=== PATIENT | female | born 1995 | race Caucasian/White ===

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

== ENCOUNTER 2017-02-18 15:07 | Emergency (ER) | payer MEDICAID ==
[~2017-02-18] VITALS: Ht 154.9 cm; Wt 56.0 kg
[~2017-02-18 15:07] MED LIST: DOXY100C PO
[2017-02-18 15:10] VITALS: BP 147/69; PULSE 60; RESP 14; TEMP 97.8; O2SAT 99
--- NOTE | 2017-02-18 15:23 | PD ---
Physical Exam Date Seen by Provider: Feb 18, 2017 Time Seen by Provider: 15:20 Narrative 21 year old female presents to the emergency department for evaluation of abdominal cramping for 6 days, recent positive tests. She reports vaginal bleeding that started approximately 45 minutes ago. Patient states her LMP was sometime in December. Patient awaiting bed placement. Data Data Last Documented VS Vital Signs Date Time Temp Pulse Resp B/P Pulse Ox O2 Delivery O2 Flow Rate FiO2 02/18/17 15:10 97.8 60 14 147/69 99 MDM Supervised Visit with KIT: Rosalia Nickerson Feb 18, 2017 15:22
--- NOTE | 2017-02-18 16:43 | PD ---
HPI Chief Complaint: Related Problem Time Seen by Provider: 16:34 Travel History International Travel<30 days: No Contact w/Intl Traveler<30days: No Traveled to known affect area: No History of Present Illness HPI 21-year-old female here with complaint of and vaginal bleeding. Patient does not know her LMP, believes it was sometimes in December but states that her menses are irregular at baseline. She's never before been . For the last 6 days she has had some cramping in the low abdomen/pelvis and today began to have some brownish to reddish vaginal bleeding. And not to use a panty liner. No clots or tissue. No abnormal discharge. Cramping is mild. Patient took 3 home test were positive prompting ER visit. PFSH Past Medical History Asthma: Yes Depression: Yes Diminished Hearing: No Reproductive: Yes (endometriosis ) Respiratory: Yes (asthma) Immunizations Current: No Tetanus Vaccination: Never Vaccinated Influenza Vaccination: No ?: LMP: 12/2016 : 1 Para: 0 Miscarriage: 0 : 0 Past Surgical History Appendectomy: Yes Social History Alcohol Use: No Tobacco Use: No Substance Use: No Allergies-Medications (Allergen,Severity, Reaction): Coded Allergies: Augmentin (Verified Allergy, Severe, Tachycardia, 02/18/17) Benadryl (Verified Allergy, Intermediate, Rash, 02/18/17) Reported Meds & Prescriptions Reported Meds & Active Scripts Active Doxycycline Hyclate 100 Mg Cap 100 Mg PO BID Review of Systems Except as stated in HPI: all other systems reviewed are Neg Physical Exam Narrative GENERAL: Well-appearing female in no acute distress SKIN: Focused skin assessment warm/dry. HEAD: Normocephalic. EYES: No scleral icterus. No injection or drainage. ENT: Mucous membranes pink and moist. NECK: Supple CARDIOVASCULAR: Regular rate and rhythm. RESPIRATORY: No accessory muscle use. GASTROINTESTINAL: Abdomen soft, non-tender, nondistended. MUSCULOSKELETAL: Normal gait NEUROLOGICAL: Awake and alert. Normal speech. PSYCHIATRIC: Appropriate mood and affect; insight and judgment normal. Data Data Last Documented VS Vital Signs Date Time Temp Pulse Resp B/P Pulse Ox O2 Delivery O2 Flow Rate FiO2 02/18/17 15:10 97.8 60 14 147/69 99 Orders Ed Urine Pregnancytest Poc (02/18/17 16:34) Ed Poc Ultrasound (02/18/17 ) Beta Hcg (Quant/Titer) (02/18/17 16:40) Complete Rh (02/18/17 16:40) Us Pelvis (Ques Preg/Ectopic) (02/18/17 ) MDM Medical Decision Making Medical Screen Exam Complete: Yes Emergency Medical Condition: Yes Medical Record Reviewed: Yes Differential Diagnosis 21-year-old female here with complaint of , cramping and vaginal bleeding. Differential includes , ectopic , threatened AB, missed AB, inevitable AB. Narrative Course Urine test positive. Bedside ultrasound performed but no identifiable intrauterine visualized. Beta Quant, Rh and formal transvaginal ultrasound were ordered and are pending at the time this dictation. Patient signed out to oncoming provider waiting results of same. Procedures Procedure Narrative Emergency Department Pelvic ultrasound was performed with patient consent. The curvilinear probe was used in the transverse and sagittal views within the suprapubic region revealing no evidence of intrauterine . Kelly Frank MD Feb 18, 2017 16:43
[2017-02-18 17:33] LABS: BETA HCG QUANT 7 MIU/ML (0-5)
--- NOTE | 2017-02-18 18:34 | RADRPT ---
EXAM DATE/TIME: 02/18/2017 17:41 [facility] COMPARISON: No previous studies available for comparison. INDICATIONS : Bleeding and pain with . LAB(S): Beta-hC MEDICAL HISTORY : . Asthma. Depression. Endometriosis. SURGICAL HISTORY : Appendectomy. ENCOUNTER: Initial ACUITY: 4-6 days PAIN SCORE: 6/10 LOCATION: Bilateral pelvis MEASUREMENTS: UTERUS: 7.7 x 4.2 x 2.6 cm ENDOMETRIAL STRIPE: 7 mm RIGHT OVARY: 2.7 x 2.3 x 2.4 cm LEFT OVARY: 2.7 x 2.1 x 2.1 cm FREE FLUID: No CROWN RUMP LENGTH: Non visualized. = WKS DAYS FHR: Non visualized. BPM FINDINGS: UTERUS: The myometrium has homogeneous echotexture. There is a small 0.4 x 0.3 x 0.2 cm cystic area seen in t he lower uterine segment/ in the endometrium. This is nonspecific. A small gestational sac cannot be excluded. A yolk sac is not seen. A pole is not seen. RIGHT OVARY: Ovary contains no mass or significant cystic lesion. Follicles are seen. Normal arterial flow is see n. LEFT OVARY: Ovary contains no mass or significant cystic lesion. Follicles are seen. Normal arterial flow is seen . MISCELLANEOUS: No free fluid. CONCLUSION: Small 0.4 cm cystic area seen in the lower uterine segment in the endometrium which is nonspecific. A gestational sac cannot be excluded. However, it also cannot be confirmed. Followup is recommended. Alexandre Romo MD on February 18, 2017 at 18:28 Board Certified Radiologist. This report was verified electronically.
--- NOTE | 2017-02-18 18:45 | PD ---
Physical Exam Narrative The patient was initially evaluated by the previous provider and sent out to me at the beginning of my shift at approximately 5:00 PM pending beta hCG, blood type, and pelvic ultrasound. See her note for further details. Briefly this is a 21-year-old female complaining of and vaginal bleeding. Unknown LMP. She had 3 positive home test at home. She was experiencing some mild pelvic cramping. On my assessment the patient is resting comfortably. Her abdominal exam is benign. Vital signs show heart rate 60, blood pressure 147/69, pulse ox 99% on room air, oral temp of 97.8F. Beta hCG is 7. Blood type is A+. Pelvic ultrasound: CONCLUSION: Small 0.4 cm cystic area seen in the lower uterine segment in the endometrium which is nonspecific. A gestational sac cannot be excluded. However, it also cannot be confirmed. Followup is recommended. Patient was made aware of all findings and was provided a copy of the ultrasound report. She is resting comfortably. There are no peritoneal signs on exam and her abdomen is nontender. She was instructed to return to the emergency department in 48-72 hours for repeat beta hCG. She is stable for outpatient follow-up. She can also follow-up with an ELECTRIC SHIPYARD OPERATOR doctor of her choice this week. She was informed on when to return to the emergency Department sooner. She verbalizes understanding and agreement with plan. Data Data Last Documented VS Vital Signs Date Time Temp Pulse Resp B/P Pulse Ox O2 Delivery O2 Flow Rate FiO2 02/18/17 15:10 97.8 60 14 147/69 99 Orders Ed Urine Pregnancytest Poc (02/18/17 16:34) Ed Poc Ultrasound (02/18/17 ) Beta Hcg (Quant/Titer) (02/18/17 16:40) Complete Rh (02/18/17 16:40) Us Pelvis (Ques Pr/Ect)W Trans (02/18/17 ) Labs Laboratory Tests Test 02/18/17 16:50 Human Chorionic Gonadotropin, 7 MIU/ML Quant Blood Type A POSITIVE Rho(D) Type POSITIVE MDM Supervised Visit with KIT: No Diagnosis Primary Impression: First trimester bleeding Referrals: Fashion Designer 1 week Additional Instruction: Follow-up with an ELECTRIC SHIPYARD OPERATOR doctor this week. Return to the emergency department in 48-72 hours for repeat beta hCG. Return to the emergency Department sooner for worsening symptoms or any other concerns as discussed. Disposition: 01 DISCHARGE HOME Condition: Miki Richardson MD Feb 18, 2017 18:44
[2017-02-18 19:24] VITALS: BP 121/63; TEMP 98.2
== END 2017-02-18 19:37 | disposition home or self-care (01) ==
LOC: NEPD 15:07
DX: O20.9 Hemorrhage in early pregnancy, unspecified (principal); J45.909 Unspecified asthma, uncomplicated; R10.9 Unspecified abdominal pain
CPT/HCPCS: 76700; 76817; 84702; 86901

== ENCOUNTER 2017-06-04 18:11 | Emergency (ER) | payer MEDICAID ==
[~2017-06-04] VITALS: Ht 154.9 cm; Wt 58.0 kg
[2017-06-04 18:13] VITALS: BP 130/88; PULSE 88; RESP 15; TEMP 98.2; O2SAT 98
--- NOTE | 2017-06-04 18:32 | PD ---
HPI . 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 She reports that she has pain in her right pelvic area and initially thought it was an ovarian cyst, however she started bleeding from her vagina and thinks that something else is going on. Currently she is bleeding, but tells me that this is not her menstrual cycle. She reports a dull pain and states there some associated nausea. She denies any vomiting, fever, chills, diarrhea or constipation. Additionally she reports that she urinated and wiped and found a foreign body in her urine. She does have the sample here with her. On picture it appears to be some type of fleshy swelling. She denies any back pain or blood in her urine. She does admit to a possibility of as she is having unprotected sex. She is accompanied by her grandmother, who she wants to be present during the entire discussion and examination. Of note she has had an appendectomy in the past. PFSH Past Medical History Asthma: Yes Depression: Yes Diminished Hearing: No Reproductive: Yes (endometriosis ) Respiratory: Yes (asthma) Immunizations Current: No ?: Unknown LMP: LAST MONTH : 1 Para: 0 Miscarriage: 0 : 0 Past Surgical History Appendectomy: Yes Social History Alcohol Use: No Tobacco Use: No Substance Use: No Allergies-Medications (Allergen,Severity, Reaction): Coded Allergies: Augmentin (Verified Allergy, Severe, Tachycardia, 02/18/17) Benadryl (Verified Allergy, Intermediate, Rash, 02/18/17) Reported Meds & Prescriptions Reported Meds & Active Scripts Active No Active Prescriptions or Reported Medications Review of Systems General / Constitutional: No: Fever Eyes: No: Visual changes HENT: No: Headaches Cardiovascular: No: Chest Pain or Discomfort Respiratory: No: Shortness of Breath Gastrointestinal: Positive: Nausea, No: Abdominal Pain Genitourinary: Positive: Vaginal Bleeding, Other (urine fb), No: Dysuria Musculoskeletal: No: Pain Skin: No Rash Neurologic: No: Weakness Psychiatric: No: Depression Endocrine: No: Polydipsia Hematologic/Lymphatic: No: Easy Bruising Physical Exam Narrative GENERAL: AAO x 3, no acute distress, Well-nourished, well-developed patient. SKIN: Warm and dry. No visible rashes or bruising. HEAD: Normocephalic and atraumatic. EYES: No scleral icterus. No injection or drainage. ENT: No nasal drainage noted. Mucous membranes pink. Airway patent. NECK: Supple, trachea midline. No JVD. CARDIOVASCULAR: Regular rate and rhythm without murmurs, gallops, or rubs. RESPIRATORY: Breath sounds equal bilaterally. No accessory muscle use. No rhonchi or rales. GASTROINTESTINAL: Abdomen soft, non-tender, nondistended. PELVIC: Krista MOORE present: + bleeding from cervix, appears to be menstrual cycle. No other abn appreciated. No cervical motion tenderness. EXTREMITIES: No cyanosis or edema. BACK: No obvious deformity. NEURO: CN II-12 intact, PSYCH: AAO x 3, normal affect. Data Data Last Documented VS Vital Signs Date Time Temp Pulse Resp B/P Pulse Ox O2 Delivery O2 Flow Rate FiO2 06/04/17 18:13 98.2 88 15 130/88 98 MDM Medical Decision Making Medical Screen Exam Complete: Yes Emergency Medical Condition: Yes Medical Record Reviewed: Yes Differential Diagnosis menstrual cycle, PID, UTI, Gonorrhea, chlamydia, menorrhagia, DUB Narrative Course 21-year-old female here with complaints of pelvic pain, abnormal vaginal bleeding and foreign body in her urine. Pelvic exam was done and she appears to be on her menstrual cycle. Samples have been collected. I have discussed the case with my attending Dr. Benavides, who will determine disposition for this patient. Scripts No Active Prescriptions or Reported Meds Condition: Stable Michelle Gutierrez Jun 04, 2017 18:32
[2017-06-04 19:59] LABS: BLOOD, URINE MOD (NEG); COMMENT (UR) CULT NOT INDICATED; CULTURE IF INDICATED CULT NOT INDICATED; GLUCOSE,URINE NEG (NEG); KETONE, URINE NEG (NEG); MUCUS URINE MANY /lpf (OCC); NITRITE,URINE NEG (NEG); SQUAMOUS EPITHELIAL CELL URINE 2 /hpf (0-5); URINE COLOR YELLOW (YELLW/STRAW)
[2017-06-04] MEDS ORDERED: NAPROXEN 500 MG TAB PO ONE (20:15)
[2017-06-04] MEDS ORDERED: NAPR500 PO (20:33)
--- NOTE | 2017-06-04 20:33 | PD ---
Data Data Last Documented VS Vital Signs Date Time Temp Pulse Resp B/P Pulse Ox O2 Delivery O2 Flow Rate FiO2 06/04/17 18:13 98.2 88 15 130/88 98 Orders Gc And Chlamydia Pcr (06/04/17 19:01) Wet Prep Profile (06/04/17 19:01) Urinalysis - C+S If Indicated (06/04/17 19:01) Ed Urine Pregnancytest Poc (06/04/17 19:01) Naproxen (Naprosyn) (06/04/17 20:15) Labs Laboratory Tests Test 06/04/17 19:00 Urine Color YELLOW Urine Turbidity CLEAR Urine pH 7.0 Urine Specific [place] 1.025 Urine Protein TRACE mg/dL Urine Glucose (UA) NEG mg/dL Urine Ketones NEG mg/dL Urine Occult Blood MOD Urine Nitrite NEG Urine Bilirubin NEG Urine Urobilinogen LESS THAN 2.0 MG/DL Urine Leukocyte Esterase NEG Urine RBC 149 /hpf Urine WBC LESS THAN 1 /hpf Urine Squamous Epithelial 2 /hpf Cells Urine Mucus MANY /lpf Microscopic Urinalysis Comment CULT NOT INDICATED Clue Cells (Wet Prep) NONE SEEN Vaginal Trichomonas (Wet Prep) NONE SEEN Vaginal Yeast (Wet Prep) NONE SEEN MDM Supervised Visit with KIT: Yes Narrative Course The history, exam, and medical decision-making in the associated mid-level provider note were completed with my assistance. I reviewed and agree with the findings presented. I attest that I had a [id number] encounter with the patient on the same day, and personally performed and documented my assessment and findings in the medical record. *My assessment and Findings: 21-year-old gentleman with vaginal bleeding and abdominal tenderness. Labs are unremarkable. Recommend supportive treatment. Diagnosis Primary Impression: Dysmenorrhea Additional Instruction: Take Naprosyn as prescribed. Follow-up with her primary doctor in the next 2-4 days. Return to the emergency department for any new or worsening symptoms. Med/Other Pt SpecificInfo: Prescription(s) given Scripts Naproxen (Naprosyn)500 Mg [id number] Mg PO BID PRN (PAIN SCALE 1 TO 10) #20 TAB Prov:Ravi Benavides MD 06/04/17 Disposition: 01 DISCHARGE HOME Condition: Stable Ravi Benavides MD Jun 04, 2017 20:33
[2017-06-04 21:41] LABS: CHLAMYDIA PCR NOT DETECTED (NOT DETECT); NEISSERIA PCR NOT DETECTED (NOT DETECT)
== END 2017-06-04 21:00 | disposition home or self-care (01) ==
LOC: NEPD 18:11
DX: N94.6 Dysmenorrhea, unspecified (principal)
CPT/HCPCS: 81001; 84703; 87210; 87491; 87591; 99283

== ENCOUNTER 2017-07-29 18:10 | Emergency (ER) | payer SELFPAY ==
[~2017-07-29] VITALS: Ht 154.9 cm; Wt 55.0 kg
[~2017-07-29 18:10] MED LIST changes: -DOXY100C PO; +NAPR500 PO
[2017-07-29 18:11] VITALS: BP 127/75; PULSE 79; RESP 20; TEMP 98.4; O2SAT 100
--- NOTE | 2017-07-29 19:33 | PD ---
HPI Chief Complaint: Related Problem Time Seen by Provider: 19:32 Travel History International Travel<30 days: No Contact w/Intl Traveler<30days: No Traveled to known affect area: No History of Present Illness HPI 21-year-old female presents to the emergency department with 3 negative tests in hand. Patient states that her menstrual cycles one month late and she has taken 3 tests. She is trying to convince me that there is a faint line on any one of these tests, however it is not clearly visible. Denies abdominal pain. No cramping. Denies any fever or chills. She has no other symptoms to report. History Past Medical Histgory LMP: JUNE 2017 Social History Alcohol Use: No Tobacco Use: No Allergies-Medications (Allergen,Severity, Reaction): Coded Allergies: No Known Allergies (Unverified , 06/04/17) Reported Meds & Prescriptions Reported Meds & Active Scripts Active Naprosyn (Naproxen) 500 Mg Tab 500 Mg PO BID PRN Review of Systems Except as stated in HPI: all other systems reviewed are Neg Physical Exam Narrative GENERAL: Well-nourished, well-developed female patient in no acute distress SKIN: Focused skin assessment warm/dry. HEAD: Normocephalic. EYES: No scleral icterus. No injection or drainage. NECK: Supple, trachea midline. No JVD or lymphadenopathy. CARDIOVASCULAR: Regular rate and rhythm without murmurs, gallops, or rubs. RESPIRATORY: Breath sounds equal bilaterally. No accessory muscle use. Abdomen: Abdomen soft, non-tender, nondistended. Positive bowel sounds. No hepato-splenomegaly, or palpable masses. No guarding. MUSCULOSKELETAL: No cyanosis, or edema. BACK: Nontender without obvious deformity. No CVA tenderness. Data Data Last Documented VS Vital Signs Date Time Temp Pulse Resp B/P (MAP) Pulse Ox O2 Delivery O2 Flow Rate FiO2 07/29/17 18:11 98.4 79 20 127/75 (92) 100 MDM Medical Screen Exam Complete: Yes Emergency Medical Condition: No Differential Diagnosis requesting test Narrative Course 21-year-old female presents to emergency department with 3 negative home test. Patient states she is 1 month late on her menstrual cycle and does not understand why they would be negative but thinks that she sees a faint line. I advised the patient to wait a week and doing other test first thing in the morning with her first void. I will not be doing an additional test here in emergency department as there are no urgent or emergent needs for medical intervention identified. A medical screening exam was performed: At the time of evaluation the presenting medical condition was determined not to be of an emergent nature. The patient was given the option of receiving additional care, but declined. Patient was given options for additional community resources from which to obtain care. The Patient Has Been advised to seek medical attention for their presenting complaint. The patient has been advised to return to the ER at any time if an emergent condition develops. Primary Impression: Encounter for medical screening examination Condition: Stable Debra Chambers Jul 29, 2017 19:33
== END 2017-07-29 19:48 | disposition left against medical advice (07) ==
LOC: NEPK 18:10
DX: Z32.00 Encounter for pregnancy test, result unknown (principal)
CPT/HCPCS: 99281

== ENCOUNTER 2017-10-28 00:27 | Emergency (ER) | payer OTHER ==
[~2017-10-28] VITALS: Ht 157.5 cm; Wt 62.0 kg
[2017-10-28 00:29] VITALS: BP 127/78; PULSE 75; RESP 16; TEMP 98; O2SAT 98
[2017-10-28 02:16] LABS: AUTOMATED NEUTROPHIL # 6.3 TH/MM3 (1.8-7.7); BASOPHIL % 0.3 % (0.0-2.0); EOSINOPHIL # 0.1 TH/MM3 (0-0.4); EOSINOPHIL % 1.2 % (0.0-4.0); HEMATOCRIT 36.5 % (35.0-46.0); HEMOGLOBIN 12.5 GM/DL (11.6-15.3); LYMPH % 28.9 % (9.0-44.0); LYMPHOCYTE # 2.9 TH/MM3 (1.0-4.8); MEAN CELL VOLUME 87.5 FL (80.0-100.0); MEAN CORPUSCULAR HGB CONC 34.3 % (32.0-36.0); MEAN PLATELET VOLUME 8.7 FL (7.0-11.0); MONO % 7.6 % (0.0-8.0); MONOCYTE # 0.8 TH/MM3 (0-0.9); PLATELET COUNT 193 TH/MM3 (150-450); RED BLOOD COUNT 4.17 MIL/MM3 (4.00-5.30); RED CELL DISTRIBUTION WIDTH 13.3 % (11.6-17.2); WHITE BLOOD COUNT 10.2 TH/MM3 (4.0-11.0)
[2017-10-28 02:19] LABS: BILIRUBIN, URINE NEG (NEG); BLOOD, URINE NEG (NEG); GLUCOSE,URINE NEG (NEG); KETONE, URINE NEG (NEG); MUCUS URINE FEW /lpf (OCC); NITRITE,URINE NEG (NEG); PH, URINE 6.5 (5.0-8.5); SQUAMOUS EPITHELIAL CELL URINE 1 /hpf (0-5); URINE COLOR YELLOW (YELLW/STRAW); URINE LEUKOCYTE ESTERASE NEG (NEG)
--- NOTE | 2017-10-28 02:59 | PD ---
HPI Chief Complaint: Abdominal Pain Time Seen by Provider: 01:25 Travel History International Travel<30 days: No Contact w/Intl Traveler<30days: No Traveled to known affect area: No History of Present Illness HPI 21 year-old female presents to the emergency department for complaint of left- sided abdominal pain and flank pain. Patient states that her last menstrual period was in September but was only 4 days long. Patient states she has irregular menses. Patient states she did a home test was positive. Patient denies any vaginal discharge or vaginal bleeding. Patient states she was complaining of her pain at work and was encouraged to come to the emergency room for evaluation. Patient states pain was 6/10 presently 4/10. Patient denies any fever or chills. No dysuria frequency urgency hematuria vaginal discharge or vaginal bleeding. PFSH Past Medical History Narrative Medical Asthma and depression endometriosis Ab1 no tobacco use nursing notes reviewed Asthma: Yes Depression: Yes Diminished Hearing: No Reproductive: Yes (endometriosis ) Respiratory: Yes (asthma) Immunizations Current: No ?: : 1 Para: 0 Miscarriage: 0 : 0 Past Surgical History Appendectomy: Yes Social History Alcohol Use: No Tobacco Use: No Substance Use: No Allergies-Medications (Allergen,Severity, Reaction): Coded Allergies: No Known Allergies (Unverified Adverse Reaction, Unknown, 10/28/17) Reported Meds & Prescriptions Reported Meds & Active Scripts Active No Active Prescriptions or Reported Medications Review of Systems Except as stated in HPI: all other systems reviewed are Neg Physical Exam Narrative GENERAL: Well-developed well-nourished female in no acute distress no respiratory distress SKIN: Warm and dry. HEAD: Normocephalic. EYES: No scleral icterus. No injection or drainage. NECK: Supple, trachea midline. No JVD or lymphadenopathy. CARDIOVASCULAR: Regular rate and rhythm without murmurs, gallops, or rubs. RESPIRATORY: Breath sounds equal bilaterally. No accessory muscle use. GASTROINTESTINAL: Abdomen soft, non-tender, nondistended. Pelvic exam: Normal external exam no lesions induration or bleeding; speculum exam scant white mucous cervical os closed no blood no tissue no clots; bimanual exam no adnexal tenderness mild uterine enlargement with tenderness on range of motion. MUSCULOSKELETAL: No cyanosis, or edema. BACK: Nontender without obvious deformity. No CVA tenderness. Data Data Last Documented VS Vital Signs Date Time Temp Pulse Resp B/P (MAP) Pulse Ox O2 Delivery O2 Flow Rate FiO2 10/28/17 04:00 72 16 120/56 (77) 100 Room Air 10/28/17 00:29 98.0 Orders Orders Beta Hcg (Quant/Titer) (10/28/17 01:25) Complete Blood Count With Diff (10/28/17 01:25) Complete Rh (10/28/17 01:25) Wet Prep Profile (10/28/17 01:25) Urinalysis - C+S If Indicated (10/28/17 01:25) Ed Urine Pregnancytest Poc (10/28/17 01:25) Us Pelvis (Ques Pr/Ect)W Trans (10/28/17 ) Ed Discharge Order (10/28/17 04:32) Labs Laboratory Tests Test 10/28/17 01:45 10/28/17 02:00 10/28/17 02:05 Urine Color YELLOW Urine Turbidity CLEAR Urine pH 6.5 Urine Specific [place] 1.022 Urine Protein NEG mg/dL Urine Glucose (UA) NEG mg/dL Urine Ketones NEG mg/dL Urine Occult Blood NEG Urine Nitrite NEG Urine Bilirubin NEG Urine Urobilinogen LESS THAN 2.0 MG/DL Urine Leukocyte Esterase NEG Urine WBC 1 /hpf Urine Squamous Epithelial Cells 1 /hpf Urine Mucus FEW /lpf Microscopic Urinalysis Comment CULT NOT INDICATED Clue Cells (Wet Prep) NONE SEEN Vaginal Trichomonas (Wet Prep) NONE SEEN Vaginal Yeast (Wet Prep) NONE SEEN White Blood Count 10.2 TH/MM3 Red Blood Count 4.17 MIL/MM3 Hemoglobin 12.5 GM/DL Hematocrit 36.5 % Mean Corpuscular Volume 87.5 FL Mean Corpuscular Hemoglobin 30.0 PG Mean Corpuscular Hemoglobin Concent 34.3 % Red Cell Distribution Width 13.3 % Platelet Count 193 TH/MM3 Mean Platelet Volume 8.7 FL Neutrophils (%) (Auto) 62.0 % Lymphocytes (%) (Auto) 28.9 % Monocytes (%) (Auto) 7.6 % Eosinophils (%) (Auto) 1.2 % Basophils (%) (Auto) 0.3 % Neutrophils # (Auto) 6.3 TH/MM3 Lymphocytes # (Auto) 2.9 TH/MM3 Monocytes # (Auto) 0.8 TH/MM3 Eosinophils # (Auto) 0.1 TH/MM3 Basophils # (Auto) 0.0 TH/MM3 CBC Comment DIFF FINAL Differential Comment Human Chorionic Gonadotropin, Quant 263 MIU/ML MDM Medical Decision Making Medical Screen Exam Complete: Yes Emergency Medical Condition: Yes Medical Record Reviewed: Yes Interpretation(s) CBC & BMP Diagram 10/28/17 02:05 Vital Signs Date Time Temp Pulse Resp B/P (MAP) Pulse Ox O2 Delivery O2 Flow Rate FiO2 10/28/17 00:29 98.0 75 16 127/78 (94) 98 Room Air [id number] hCG: Positive Quantitative hC (A+) Last Impressions Pelvis Ultrasound 10/28/17 0000 Signed Impressions: Service Date/Time: Saturday, October 28, 2017 01:31 - CONCLUSION: 1. Rounded complex cystic structure in the left adnexal region with sonographic characteristics that are suspicious for ectopic . There is a small amount of adjacent complex fluid in the adnexal region indicating a possible early ruptured ectopic . 2. No intrauterine gestational sac identified. Daryl Collins MD Differential Diagnosis UTI, , ectopic Narrative Course Specimens collected and sent for resulting; ultrasound ordered Chronic hCG positive Quantitative [id number] consistent with 2-3 weeks which would be consistent with her last menses. At 4:30 AM patient has been seen by [facility] Dr. Corea from the OB ED who has examined the patient reviewed her labs and her imaging study by ultrasound. According to Dr. Corea she does not think that this is an ectopic . According to Dr. Corea believes this is an early with a prominent corpus luteal cyst. According to Dr. Corea he wants the patient discharged to home with plan to recheck in 3 days for repeat quantitative hCG as well as repeat ultrasound in the emergency department. (please refer to Dr Corea's dictation). Patient is aware of discharge planning and need for close follow-up as an outpatient. Patient is aware that she needs to return in 3 days to have a repeat blood test and ultrasound. Patient will be placed on no work 3 days. It is explained in detail to the patient that should she have any increasing pain leading or any concerns that she should return immediately to the nearest emergency department to be reassessed. Patient is aware that the status of her is still unclear and that she does need to have repeat blood work and imaging to see the progression of the however any acute change may suggest that she needs procedural intervention that she should come to the nearest emergency department. Patient acknowledges understanding of her diagnosis as well as her repeat assessment and evaluation in the emergency department. Patient is to take vitamins. Physician Communication Physician Communication @ 3:[address] Corea -- [facility]; @ 4am Dr Corea at the bedside Diagnosis Primary Impression: Qualified Codes: Z3A.01 - Less than 8 weeks gestation of Referrals: [employer] 3 days Patient Instructions: General Instructions Departure Forms: Tests/Procedures, Work Release Special Instructions: no work x 3 days Additional Instructions: Increase fluid hydration Take vitamins Return to the emergency department 72 hours for repeat blood work and ultrasound Return immediately to the emergency department for pain bleeding or any concerns No work 3 days May use acetaminophen/Tylenol as often as every 4 hours as needed for minor discomfort or for fever 100.4F or greater Med/Other Pt SpecificInfo: No Meds Exist/No RX given Scripts No Active Prescriptions or Reported Meds Disposition: 01 DISCHARGE HOME Condition: Stable Riat Alarcon MD Oct 28, 2017 02:59
--- NOTE | 2017-10-28 03:07 | RADRPT ---
EXAM DATE/TIME: 10/28/2017 01:31 [facility] COMPARISON: US PELVIS (QUEST PREG/ECTOPIC) W/TRANSVAG, February 18, 2017, 17:41. INDICATIONS : Pelvic pain. LAB(S): Beta-hC MEDICAL HISTORY : . Asthma. Depression. Endometriosis. SURGICAL HISTORY : Appendectomy. ENCOUNTER: Subsequent ACUITY: 2 days PAIN SCORE: 6/10 LOCATION: Bilateral pelvis MEASUREMENTS: UTERUS: 8.6 x 4.7 x 4.1 cm ENDOMETRIAL STRIPE: 11 mm RIGHT OVARY: 2.6 x 3.3 x 1.7 cm LEFT OVARY: 3.5 x 2.7 x 2.7 cm FREE FLUID: Yes FINDINGS: UTERUS: There is focal thickening of the endometrial stripe measuring 11 mm in the body of the uterus. No int rauterine gestational sac identified. RIGHT OVARY: Ovary contains no mass or significant cystic lesion. LEFT OVARY: There is a rounded structure in the left adnexal region with a thick rim of soft tissue and central r ounded complex cystic area. A pole or yolk sac is not identified. Small amount of adjacent comp brandi fluid in the left adnexal region. CONCLUSION: 1. Rounded complex cystic structure in the left adnexal region with sonographic characteristics that are suspicious for ectopic . There is a small amount of adjacent complex fluid in the adnexa l region indicating a possible early ruptured ectopic . 2. No intrauterine gestational sac identified. Daryl Collins MD on October 28, 2017 at 2:57 Board Certified Radiologist. This report was verified electronically.
[2017-10-28 04:00] VITALS: BP 120/56; PULSE 72; RESP 16; O2SAT 100
--- NOTE | 2017-10-28 04:48 | PD.CONS ---
HPI Chief Complaint Left-sided abdominal pain going to the back with a positive test Date Seen: Oct 28, 2017 Time Seen: 04:30 Travel History International Travel<30 Days: No Contact w/Intl Traveler<30Days: No Known Affected Area: No History of Present Illness HPI Patient is 21-year-old with left-sided abdominal pain that radiates to the back for the last day, patient's no she's for about a week should be checking tests that were positive. She presents here at the main ER for evaluation of pain. She is in no bleeding of per vagina last menstrual period was the first week in September, she states periods are irregular is not unusual to miss a month. Here in the ER she has a quantitative hCG of 263.0 and a ultrasound with an empty uterus and a left sided ovarian cystic structure as well as centimeter in size that was suspicious for ectopic according to radiology Weeks Gestation: 4 Para: 0 : 1 Last Menstrual Period: Sep 17, 2017 History Past Medical History Narrative Medical Positive history of asthma takes no medication She had some type of kidney problem that was treated with a laparoscopic surgery but she cannot elaborate on what that was Past Surgical History Narrative Surgical Laparoscopy for appendectomy Social History Alcohol Use: No Tobacco Use: No Substance Abuse: No Allergies-Medications (Allergen,Severity, Reaction): Coded Allergies: No Known Allergies (Unverified Adverse Reaction, Unknown, 10/28/17) Home Meds Discontinued Scripts Naproxen (Naprosyn) 500 Mg Tab, 500 MG PO BID Y for PAIN SCALE 1 TO 10, #20 TAB Prov:Ravi Benavides MD 06/04/17 Review of Systems General / Constitutional: No: Fever, Weight Gain, Chills, Other Eyes: No: Diploplia, Blurred Vision, Visual changes, Pain, Photophobia HENT: No: Headaches, Vertigo, Lightheadedness Cardiovascular: No: Irregular Rhythm, Chest Pain or Discomfort, Palpitations, Tachycardia, Syncope, Varicosities, Edema, Cyanosis Respiratory: No: Cough, Short of Breath, Other Gastrointestinal: Abdominal Pain, No: Nausea, Vomiting, Diarrhea Genitourinary: No: Decreased Urinary Output, Oliguria Musculoskeletal: No: Limited ROM, Weakness, Cramping, Edema, Pain Skin: No Rash, No Itching, No Dryness, No Lumps, No Change in Pigmentation, No Change in Nails, No Alopecia, No Lesions Neurologic: No: Weakness, Dizziness, Syncope, Focal Abnormalities, Coordination Problem, Headache, Slurred Speech, Seizures Psychiatric: No: Depression, Suicidal Ideations, Homicidal Ideation Endocrine: No: Heat Intolerance, Cold Intolerance, Polydipsia, Polyuria, Other Physical Exam Vital Signs Date Time Temp Pulse Resp B/P (MAP) Pulse Ox O2 Delivery O2 Flow Rate FiO2 10/28/17 04:00 72 16 120/56 (77) 100 Room Air 10/28/17 00:29 98.0 75 16 127/78 (94) 98 Room Air Narrative GENERAL: Well-nourished, well-developed patient. SKIN: Warm and dry. HEAD: Normocephalic and atraumatic. EYES: No scleral icterus. No injection or drainage. ENT: No nasal drainage noted. Mucous membranes pink. Airway patent. NECK: Supple, trachea midline. No JVD. CARDIOVASCULAR: Regular rate and rhythm without murmurs, gallops, or rubs. RESPIRATORY: Breath sounds equal bilaterally. No accessory muscle use. BREASTS: Bilateral exam showed no masses , no retractions, no nipple discharge. ABDOMEN/GI: Abdomen soft, 1+-tender in left lower quad , bowel sounds present, no rebound, no guarding no mass GENITOURINARY: External Genitalia: intact and normal in appearance Cervix: [closed no CMT-] Uterus is anteflexed and normal size nontender, no adnexal masses noted only minimal pain to palpation of the left side no rebound tenderness EXTREMITIES: No cyanosis or edema. BACK: Nontender without obvious deformity. No CVA tenderness. NEUROLOGICAL: Awake and alert. Motor and sensory grossly within normal limits. Five out of 5 muscle strength in all muscle groups. Normal speech. Data Data Orders Orders Beta Hcg (Quant/Titer) (10/28/17 01:25) Complete Blood Count With Diff (10/28/17 01:25) Complete Rh (10/28/17 01:25) Wet Prep Profile (10/28/17 01:25) Urinalysis - C+S If Indicated (10/28/17 01:25) Ed Urine Pregnancytest Poc (10/28/17 01:25) Us Pelvis (Ques Pr/Ect)W Trans (10/28/17 ) Ed Discharge Order (10/28/17 04:32) Labs Laboratory Tests Test 10/28/17 01:45 10/28/17 02:00 10/28/17 02:05 Urine Color YELLOW Urine Turbidity CLEAR Urine pH 6.5 Urine Specific [place] 1.022 Urine Protein NEG Urine Glucose (UA) NEG Urine Ketones NEG Urine Occult Blood NEG Urine Nitrite NEG Urine Bilirubin NEG Urine Urobilinogen LESS THAN 2.0 Urine Leukocyte Esterase NEG Urine WBC 1 Urine Squamous Epithelial Cells 1 Urine Mucus FEW Microscopic Urinalysis Comment CULT NOT INDICATED Clue Cells (Wet Prep) NONE SEEN Vaginal Trichomonas (Wet Prep) NONE SEEN Vaginal Yeast (Wet Prep) NONE SEEN White Blood Count 10.2 Red Blood Count 4.17 Hemoglobin 12.5 Hematocrit 36.5 Mean Corpuscular Volume 87.5 Mean Corpuscular Hemoglobin 30.0 Mean Corpuscular Hemoglobin Concent 34.3 Red Cell Distribution Width 13.3 Platelet Count 193 Mean Platelet Volume 8.7 Neutrophils (%) (Auto) 62.0 Lymphocytes (%) (Auto) 28.9 Monocytes (%) (Auto) 7.6 Eosinophils (%) (Auto) 1.2 Basophils (%) (Auto) 0.3 Neutrophils # (Auto) 6.3 Lymphocytes # (Auto) 2.9 Monocytes # (Auto) 0.8 Eosinophils # (Auto) 0.1 Basophils # (Auto) 0.0 CBC Comment DIFF FINAL Differential Comment Human Chorionic Gonadotropin, Quant 263 MDM Interpretation(s) Patient is a 21-year-old with pain in the first trimester . This pain is left-sided that radiates to the back been going on for 1 day. Denies any bleeding. Here in the emergency room her quantitative hCG is 263 and ultrasound shows empty uterus which would expect also to look 1 number and left ovary with a possibly 1 cm cystic structure basically appears to be in the ovary on ultrasound which in my estimation is more like a corpus luteal cyst and less likely the ectopic. The patient's exam was essentially benign very minimal tenderness in the left side no rebound pain no masses palpated no cervical motion tenderness on exam of the pelvis cervix is closed Plan This patient needs to have conservative follow-up this time until her diagnosis is more definitive. This could certainly be a normal early intrauterine with just too early to see the pole and sac in the uterus, however it also could be an ectopic is just a very early stage. Recommend she come back in 3 days for repeat quantitative hCG was a double every 3 days in a normal and a repeat ultrasound to evaluate the left side and basically she needs to be seen every 3-4 days until a diagnosis is definitive. If it is an ectopic and she is intact and methotrexate would be the treatment choice. She was informed to return to the emergency room sooner if there was any significant increase in pain and or bleeding Diagnosis: abdominal pain in early Disposition: 01 DISCHARGE HOME Condition: Stable Scripts No Active Prescriptions or Reported Meds Patient Instructions: General Instructions Departure Forms: Tests/Procedures Herve Corea II, MD Oct 28, 2017 04:48
== END 2017-10-28 05:05 | disposition home or self-care (01) ==
LOC: NEPC 00:27
DX: O26.91 Pregnancy related conditions, unspecified, first trimester (principal); N83.12 Corpus luteum cyst of left ovary; Z3A.00 Weeks of gestation of pregnancy not specified
CPT/HCPCS: 76700; 76817; 81001; 84702; 84703; 85025; 86901; 87210; 99284

== ENCOUNTER 2017-10-31 12:05 | Emergency (ER) | payer MEDICAID, OTHER ==
[~2017-10-31] VITALS: Ht 157.5 cm; Wt 57.3 kg
[2017-10-31 12:06] VITALS: BP 118/71; PULSE 77; RESP 16; TEMP 98.7; O2SAT 100
--- NOTE | 2017-10-31 13:25 | PD ---
HPI Chief Complaint: Related Problem Time Seen by Provider: 13:06 Travel History International Travel<30 days: No Contact w/Intl Traveler<30days: No Traveled to known affect area: No History of Present Illness HPI 21-year-old female presents to the emergency department for reevaluation after being seen 2 days ago for possible ectopic . Last menstrual period was September 14. States periods are irregular. Denies continued abdominal pain ; says the pain stopped yesterday. Denies dysuria; denies vaginal discharge, odor, leaking, bleeding. No known relieving or aggravating factors. Has no other medical complaints; says she just came in for reevaluation as instructed. Does not have an established SALES RECORD CLERK. Does not have an established primary care provider. No known allergies. 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 No other modifying factors or associated signs and symptoms. PFSH Past Medical History Asthma: Yes Depression: Yes Diminished Hearing: No Reproductive: Yes (endometriosis ) Respiratory: Yes (asthma) Immunizations Current: No Tetanus Vaccination: > 5 Years Influenza Vaccination: Yes ?: : 2 Para: 0 Miscarriage: 1 : 0 Past Surgical History Appendectomy: Yes Social History Alcohol Use: No Tobacco Use: No Substance Use: No Allergies-Medications (Allergen,Severity, Reaction): Coded Allergies: No Known Allergies (Verified Adverse Reaction, Unknown, 10/31/17) Reported Meds & Prescriptions Reported Meds & Active Scripts Active No Active Prescriptions or Reported Medications Review of Systems Except as stated in HPI: all other systems reviewed are Neg Physical Exam Narrative GENERAL: Well-nourished, well-developed female patient, in no acute distress SKIN: Warm and dry. HEAD: Atraumatic. Normocephalic. EYES: Pupils equal and round. No scleral icterus. No injection or drainage. ENT: Mucosa pink and moist. Airway patent. NECK: Trachea midline. CARDIOVASCULAR: Regular rate and rhythm. No murmur appreciated. RESPIRATORY: No accessory muscle use. Clear to auscultation. Breath sounds equal bilaterally. GASTROINTESTINAL: Abdomen soft, non-tender, nondistended. Hepatic and splenic margins not palpable. Bowel sounds are active 4 quadrants. MUSCULOSKELETAL: No obvious deformities. No clubbing. No cyanosis. No edema. NEUROLOGICAL: Awake and alert. Oriented 3. No obvious cranial nerve deficits. Motor grossly within normal limits. Normal speech. PSYCHIATRIC: Appropriate mood and affect; insight and judgment normal. Data Data Last Documented VS Vital Signs Date Time Temp Pulse Resp B/P (MAP) Pulse Ox O2 Delivery O2 Flow Rate FiO2 10/31/17 13:03 16 10/31/17 12:06 98.7 77 118/71 (87) 100 Room Air Orders Orders Beta Hcg (Quant/Titer) (10/31/17 12:21) Us Pelvis (Ques Pr/Ect)W Trans (10/31/17 ) Ed Discharge Order (10/31/17 15:42) Labs Laboratory Tests Test 10/31/17 12:30 Human Chorionic Gonadotropin, Quant 1483 MIU/ML MDM Medical Decision Making Medical Screen Exam Complete: Yes Emergency Medical Condition: Yes Medical Record Reviewed: Yes Differential Diagnosis IUP, , ectopic , Narrative Course 21-year-old female presents to the emergency department for beta hCG and ultrasound recheck. He was seen on October 28 and was told to return for reevaluation. On Oct 28, 2017 her beta hCG 263 and Pelvic ultrasound from October 28 concluded: Rounded complex cystic structure in the left adnexal region with sonographic characteristics that are suspicious for ectopic . There is a small amount of adjacent complex fluid in the adnexal region indicating a possible early ruptured ectopic . 2. No intrauterine gestational sac identified. The hCG and pelvic and transvaginal ultrasound ordered. 1540: Repeat beta hCG 1483. Pelvic ultrasound concludes: Pelvis Ultrasound 10/31/17 0000 Signed Impressions: Service Date/Time: Tuesday, October 31, 2017 13:29 - CONCLUSION: 1. There is now an identifiable gestational sac within the endometrial canal measuring approximately 4 mm in diameter. Although a pole and yolk sac are not identified, the fact that the patient has a rising beta hCG is encouraging for an early uterine . 2. Complex area in the left ovary probably represents a corpus luteum. Small amount of free fluid in the cul-de-sac Sean Thomas MD She provided a copy of the ultrasound report. Instructed to follow-up with door repairer bus. Instructed patient to follow up with primary care provider. Patient verbalizes understanding and agreement with treatment plan. Patient is medically cleared and stable for discharge. Discussed reasons to return to the emergency department. Patient agrees with treatment plan. The patients vital signs are stable and the patient is stable for outpatient follow-up and treatment. Patient discharged home, stable and in no acute distress. Diagnosis Primary Impression: Intrauterine Referrals: [facility] Integrity Consultant Primary Care Physician Patient Instructions: First Trimester (ED), General Instructions Additional Instructions: pills as directed Follow-up with door repairer bus Follow-up with primary care provider Return to the emergency department immediately with worsening of symptoms Med/Other Pt SpecificInfo: No Change to Meds, No Meds Exist/No RX given Scripts No Active Prescriptions or Reported Meds Disposition: 01 DISCHARGE HOME Condition: Stable Amanda Sloan Oct 31, 2017 13:25
--- NOTE | 2017-10-31 15:32 | RADRPT ---
EXAM DATE/TIME: 10/31/2017 13:29 [facility] COMPARISON: US PELVIS (QUEST PREG/ECTOPIC) W/TRANSVAG, October 28, 2017, 1:31. INDICATIONS : Ectopic. Patient had pelvic pains 10/28/2017 but that subsided. LAB(S): Beta-hC,483 was 263 10/28/2017 MEDICAL HISTORY : . Asthma. Endometriosis. Depression. SURGICAL HISTORY : Appendectomy. ENCOUNTER: Initial ACUITY: 3 days PAIN SCORE: 0/10 LOCATION: Bilateral pelvis MEASUREMENTS: UTERUS: 7.1 x 5.2 x4.2 cm ENDOMETRIAL STRIPE: 17 mm RIGHT OVARY: 3.3 x 2.0 1.7 cm LEFT OVARY: 3.7 x 2.4 x 2.5 cm FREE FLUID: Yes posterior cul de sac FINDINGS: UTERUS: The myometrium has homogeneous echotexture without mass. There is now an identifiable gestational sa c within the urine cavity measuring measuring approximately 4 mm in diameter. This is too early to da te. No pole or yolk sac identified. RIGHT OVARY: Ovary contains no mass or significant cystic lesion. LEFT OVARY: Complex area in the upper pole of the left ovary measures 2.4 x 2.1 x 1.7 cm and may represent a elizabeth us luteum MISCELLANEOUS: Small amount of free fluid in the cul-de-sac. CONCLUSION: 1. There is now an identifiable gestational sac within the endometrial canal measuring approximately 4 mm in diameter. Although a pole and yolk sac are not identified, the fact that the patient fritz s a rising beta hCG is encouraging for an early uterine . 2. Complex area in the left ovary probably represents a corpus luteum. Small amount of free fluid in the cul-de-sac Sean Thomas MD on October 31, 2017 at 15:25 Board Certified Radiologist. This report was verified electronically.
[2017-10-31 16:00] VITALS: BP 120/81; TEMP 97.8
== END 2017-10-31 16:10 | disposition home or self-care (01) ==
LOC: NEPD 12:05
DX: O26.91 Pregnancy related conditions, unspecified, first trimester (principal); Z3A.00 Weeks of gestation of pregnancy not specified
CPT/HCPCS: 76700; 76817; 84702; 99284

== ENCOUNTER 2017-11-16 20:27 | Emergency (ER) | payer MEDICAID, OTHER ==
[~2017-11-16] VITALS: Ht 157.5 cm; Wt 58.2 kg
[2017-11-16 20:31] VITALS: BP 123/78; PULSE 71; RESP 16; TEMP 98.3; O2SAT 99
--- NOTE | 2017-11-16 21:53 | PD ---
HPI Chief Complaint: Related Problem Time Seen by Provider: 21:37 Travel History International Travel<30 days: No Contact w/Intl Traveler<30days: No Traveled to known affect area: No History of Present Illness HPI 21-year-old female presents emergency department proximal 7 weeks . She is . Patient states that she has been at home vomiting continuously over the past 24-48 hours, she also notes that she was having some small amount of vaginal spotting on toilet paper recently. Denies any abdominal pain loss of fluid weakness fatigue dysuria. She states she is concerned that she might be having a miscarriage. States symptoms for the past 2 days, gradually worsening, no alleviating or exacerbating factors, context as above. PFSH Past Medical History Asthma: Yes Depression: Yes Diminished Hearing: No Reproductive: Yes (endometriosis ) Respiratory: Yes (asthma) Immunizations Current: No ?: LMP: 09/18/2017 : 2 Para: 0 Miscarriage: 1 : 0 Past Surgical History Appendectomy: Yes Social History Alcohol Use: No Tobacco Use: No Substance Use: No Allergies-Medications (Allergen,Severity, Reaction): Coded Allergies: No Known Allergies (Verified Adverse Reaction, Unknown, 11/16/17) Reported Meds & Prescriptions Reported Meds & Active Scripts Active Macrobid (Nitrofurantoin Monoh/Nitrofur Macro) 100 Mg Cap 100 Mg PO BID 7 Days Zofran Odt (Ondansetron Odt) 4 Mg Tab 4 Mg SL Q6HR PRN Review of Systems Except as stated in HPI: all other systems reviewed are Neg Physical Exam Narrative GENERAL: Well-developed well-nourished no obvious distress. SKIN: Focused skin assessment warm/dry. HEAD: Atraumatic. Normocephalic. EYES: Pupils equal and round. No scleral icterus. No injection or drainage. ENT: No nasal bleeding or discharge. Mucous membranes pink and moist. Oropharynx clear NECK: Trachea midline. No JVD. CARDIOVASCULAR: Regular rate and rhythm. No murmur appreciated. RESPIRATORY: No accessory muscle use. Clear to auscultation. Breath sounds equal bilaterally. GASTROINTESTINAL: Abdomen soft, non-tender, nondistended. Hepatic and splenic margins not palpable. Abdomen soft nontender. Genitourinary: Recommended to and declined by patient. MUSCULOSKELETAL: No obvious deformities. No clubbing. No cyanosis. No edema. NEUROLOGICAL: Awake and alert. No obvious cranial nerve deficits. Motor grossly within normal limits. Normal speech. PSYCHIATRIC: Appropriate mood and affect; insight and judgment normal. Data Data Last Documented VS Vital Signs Date Time Temp Pulse Resp B/P (MAP) Pulse Ox O2 Delivery O2 Flow Rate FiO2 11/16/17 23:12 11/16/17 20:31 98.3 71 16 99 Orders Orders Beta Hcg (Quant/Titer) (11/16/17 20:35) Complete Blood Count With Diff (11/16/17 20:35) Basic Metabolic Panel (Bmp) (11/16/17 20:35) Urinalysis - C+S If Indicated (11/16/17 20:35) Ed Poc Ultrasound (11/16/17 21:44) Ondansetron Odt (Zofran Odt) (11/16/17 22:00) Ed Discharge Order (11/16/17 22:58) Labs Laboratory Tests Test 11/16/17 20:00 11/16/17 21:00 Urine Color YELLOW Urine Turbidity HAZY Urine pH 6.0 Urine Specific [place] 1.036 Urine Protein 30 mg/dL Urine Glucose (UA) NEG mg/dL Urine Ketones 10 mg/dL Urine Occult Blood SMALL Urine Nitrite NEG Urine Bilirubin NEG Urine Urobilinogen 4.0 MG/DL Urine Leukocyte Esterase SMALL Urine RBC 10 /hpf Urine WBC 6 /hpf Urine Squamous Epithelial Cells 5 /hpf Urine Bacteria RARE /hpf Urine Mucus MANY /lpf Microscopic Urinalysis Comment CULT NOT INDICATED White Blood Count 9.9 TH/MM3 Red Blood Count 4.55 MIL/MM3 Hemoglobin 13.6 GM/DL Hematocrit 39.6 % Mean Corpuscular Volume 87.1 FL Mean Corpuscular Hemoglobin 30.0 PG Mean Corpuscular Hemoglobin Concent 34.4 % Red Cell Distribution Width 13.1 % Platelet Count 259 TH/MM3 Mean Platelet Volume 9.1 FL Neutrophils (%) (Auto) 71.1 % Lymphocytes (%) (Auto) 20.8 % Monocytes (%) (Auto) 7.3 % Eosinophils (%) (Auto) 0.6 % Basophils (%) (Auto) 0.2 % Neutrophils # (Auto) 7.1 TH/MM3 Lymphocytes # (Auto) 2.1 TH/MM3 Monocytes # (Auto) 0.7 TH/MM3 Eosinophils # (Auto) 0.1 TH/MM3 Basophils # (Auto) 0.0 TH/MM3 CBC Comment DIFF FINAL Differential Comment Blood Urea Nitrogen 7 MG/DL Creatinine 0.57 MG/DL Random Glucose 92 MG/DL Calcium Level 9.6 MG/DL Sodium Level 136 MEQ/L Potassium Level 4.3 MEQ/L Chloride Level 102 MEQ/L Carbon Dioxide Level 28.2 MEQ/L Anion Gap 6 MEQ/L Estimat Glomerular Filtration Rate 137 ML/MIN Human Chorionic Gonadotropin, Quant 97696 MIU/ML [facility] Medical Decision Making Medical Screen Exam Complete: Yes Emergency Medical Condition: Yes Differential Diagnosis Threatened miscarriage, Rh mismatch excluded by previous records, asymptomatic bacteriuria, vaginal bleeding in early , hyperemesis gravidarum. Narrative Course Patient roomed emergency department, bedside ultrasound was reassuring, given Zofran and she is feeling completely better. She states she would like to be discharged home. Discussed Zofran should be used to lowest effective dosing, asymptomatic bacteriuria noted on urinalysis, will be prescribed Macrobid. She is stable for discharge discussed early care follow-up with her OB/ COUNTER CLERK TRACTOR PARTS take vitamins discussed abstinence from alcohol tobacco or illicit substances. Procedures Procedure Narrative Bedside ultrasound: Transabdominal views obtained of the patient's uterus showing a single intrauterine approximate 7 weeks 0 days gestational age by crown-rump length, a faint heart motion can be seen, too small to be measured accurately by M-mode. No gross abnormality is no pelvic free fluid. Diagnosis Primary Impression: Vomiting affecting Additional Impression: Bacteria in urine Med/Other Pt SpecificInfo: Prescription(s) given Scripts Nitrofurantoin Monohydrate Macrocrystals (Macrobid) 100 Mg Cap 100 MG PO BID for Infection for 7 Days, #14 CAP 0 Refills Prov: Mauro Mendoza MD 11/16/17 Ondansetron Odt (Zofran Odt) 4 Mg Tab 4 MG SL Q6HR Y for Nausea/Vomiting, #30 TAB 0 Refills Prov: Mauro Mendoza MD 11/16/17 Disposition: 01 DISCHARGE HOME Condition: Stable Mauro Mendoza MD Nov 16, 2017 21:53
[2017-11-16] MEDS ORDERED: ONDANSETRON ODT 4 MG TAB PO ONE (22:00)
[2017-11-16 22:10] LABS: AUTOMATED NEUTROPHIL # 7.1 TH/MM3 (1.8-7.7); BASOPHIL % 0.2 % (0.0-2.0); EOSINOPHIL # 0.1 TH/MM3 (0-0.4); EOSINOPHIL % 0.6 % (0.0-4.0); HEMATOCRIT 39.6 % (35.0-46.0); HEMOGLOBIN 13.6 GM/DL (11.6-15.3); LYMPH % 20.8 % (9.0-44.0); LYMPHOCYTE # 2.1 TH/MM3 (1.0-4.8); MEAN CELL VOLUME 87.1 FL (80.0-100.0); MEAN CORPUSCULAR HGB CONC 34.4 % (32.0-36.0); MEAN PLATELET VOLUME 9.1 FL (7.0-11.0); MONO % 7.3 % (0.0-8.0); MONOCYTE # 0.7 TH/MM3 (0-0.9); NEUT % 71.1 % (16.0-70.0); PLATELET COUNT 259 TH/MM3 (150-450); RED BLOOD COUNT 4.55 MIL/MM3 (4.00-5.30); RED CELL DISTRIBUTION WIDTH 13.1 % (11.6-17.2); WHITE BLOOD COUNT 9.9 TH/MM3 (4.0-11.0)
[2017-11-16 22:24] LABS: BACTERIA, URINE RARE /hpf; BILIRUBIN, URINE NEG (NEG); BLOOD, URINE SMALL (NEG); GLUCOSE,URINE NEG (NEG); KETONE, URINE 10 mg/dL (NEG); MUCUS URINE MANY /lpf (OCC); NITRITE,URINE NEG (NEG); SQUAMOUS EPITHELIAL CELL URINE 5 /hpf (0-5); URINE COLOR YELLOW (YELLW/STRAW); URINE LEUKOCYTE ESTERASE SMALL (NEG)
[2017-11-16 22:27] LABS: BICARBONATE 28.2 MEQ/L (21.0-32.0); CALCIUM 9.6 MG/DL (8.5-10.1); CREATININE 0.57 MG/DL (0.50-1.00)
[2017-11-16] MEDS ORDERED: ZOFR4TAB3 SL (22:54)
[2017-11-16] MEDS ORDERED: MACR100C2 PO (22:54)
== END 2017-11-16 23:12 | disposition home or self-care (01) ==
LOC: NEPD 20:27
DX: O21.9 Vomiting of pregnancy, unspecified (principal); O26.891 Other specified pregnancy related conditions, first trimester; R82.71 Bacteriuria; O99.341 Other mental disorders complicating pregnancy, first trimester; F32.9 Major depressive disorder, single episode, unspecified; O99.511 Diseases of the respiratory system complicating pregnancy, first trimester; J45.909 Unspecified asthma, uncomplicated; Z3A.01 Less than 8 weeks gestation of pregnancy
CPT/HCPCS: 80048; 81001; 84702; 85025; 99284

== ENCOUNTER 2017-11-19 16:47 | Emergency (ER) | payer MEDICAID ==
[~2017-11-19] VITALS: Ht 157.5 cm; Wt 55.0 kg
[~2017-11-19 16:47] MED LIST changes: +MACR100C2 PO; -NAPR500 PO; +ZOFR4TAB3 SL
[2017-11-19 16:51] VITALS: BP 128/60; PULSE 80; RESP 16; TEMP 98.2; O2SAT 100
--- NOTE | 2017-11-19 17:29 | PD ---
HPI Chief Complaint: Chest Pain Time Seen by Provider: 17:19 Travel History International Travel<30 days: No Contact w/Intl Traveler<30days: No Traveled to known affect area: No History of Present Illness HPI 21-year-old female, proximally 7 weeks , and with history of asthma presents to the emergency Department with complaint of reproducible sternal chest pain and shortness of breath. Denies heavy lifting or straining. Shortness of breath and for 2 hours. Chest pain onset approximately 40 minutes ago. Denies abdominal cramping, pain. Denies vaginal discharge, leaking, bleeding. Said she had an asthma attack earlier today at proximally 2 PM and used her grandmother's Ventolin inhaler with good relief of symptoms. Denies fevers, vomiting, hemoptysis, cough. Rates the pain 8/10. Has not taken any medications to alleviate her symptoms. Pain is aggravated with pressure and taking deep breaths. Pain is mid sternum. Describes the pain as a pressure. Has an appointment with her county or city auditor on December 08. Dr. Zuleta his primary care provider. No known allergies. 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 Has no other medical complaints. No other modifying factors or associated signs and symptoms. PFSH Past Medical History Asthma: Yes Depression: Yes Diminished Hearing: No Reproductive: Yes (endometriosis ) Respiratory: Yes (asthma) Immunizations Current: No Tetanus Vaccination: < 5 Years ?: LMP: 09/16/18 : 2 Para: 0 Miscarriage: 1 : 0 Past Surgical History Appendectomy: Yes Social History Alcohol Use: No Tobacco Use: No Substance Use: No Allergies-Medications (Allergen,Severity, Reaction): Coded Allergies: No Known Allergies (Verified Adverse Reaction, Unknown, 11/19/17) Reported Meds & Prescriptions Reported Meds & Active Scripts Active Deltasone (Prednisone) 20 Mg Tab 40 Mg PO DAILY 4 Days start 11/20/2017 Ventolin Hfa 18 GM Inh (Albuterol Sulfate) 90 Mcg/Act Aer 2 Puff INH Q4-6H PRN Review of Systems Except as stated in HPI: all other systems reviewed are Neg Physical Exam Narrative GENERAL: Well-nourished, well-developed female patient, in no acute distress SKIN: Warm and dry. HEAD: Atraumatic. Normocephalic. EYES: Pupils equal and round. No scleral icterus. No injection or drainage. ENT: Mucosa pink and moist. NECK: Trachea midline. CHEST: Reproducible tenderness to the sternum just in between the breasts; no crepitance or deformity. No retractions or use of accessory muscles. CARDIOVASCULAR: Regular rate and rhythm. No murmur appreciated. RESPIRATORY: No accessory muscle use. Decreased lung sounds to bilateral bases ; otherwise clear. Breath sounds equal bilaterally. No retractions or tachypnea. GASTROINTESTINAL: Abdomen soft, non-tender, nondistended. Hepatic and splenic margins not palpable. Bowel sounds are active 4 quadrants. MUSCULOSKELETAL: No obvious deformities. No clubbing. No cyanosis. No edema. NEUROLOGICAL: Awake and alert. Oriented 3. No obvious cranial nerve deficits. Motor grossly within normal limits. Normal speech. Moves all extremities. 5/5 strength to all extremities. PSYCHIATRIC: Appropriate mood and affect; insight and judgment normal. Data Data Last Documented VS Vital Signs Date Time Temp Pulse Resp B/P (MAP) Pulse Ox O2 Delivery O2 Flow Rate FiO2 11/19/17 16:51 98.2 80 16 128/60 (82) 100 Orders Orders Chest, Single Ap (11/19/17 17:28) Prednisone (Deltasone) (11/19/17 17:30) Albuterol-Ipratropium Neb (Duoneb Neb) (11/19/17 17:30) Acetaminophen (Tylenol) (11/19/17 17:30) Ed Discharge Order (11/19/17 18:13) [facility] Medical Decision Making Medical Screen Exam Complete: Yes Emergency Medical Condition: Yes Medical Record Reviewed: Yes Differential Diagnosis Asthma exacerbation, chest wall pain, Narrative Course 21-year-old female that is proximally 7 weeks with history of asthma presents with chest pain and shortness of breath. Chest pain is reproducible in his midsternum. Patient is in no acute distress here. Her oxygen saturation is 100% on room air on the cardiopulmonary monitor. I discussed the patient with Dr. giraldo and he agrees to plan of care. DuoNeb, prednisone, chest x-ray, Tylenol ordered. 1807: Chest x-ray with no acute findings. On reexamination the patient states she feels much better. She denies shortness of breath. She feels comfortable going home. Ventolin inhaler, Deltasone prescribed for home. Instructed patient to follow up with county or city auditor. Instructed patient to follow up with primary care provider. Patient verbalizes understanding and agreement with treatment plan. Patient is medically cleared and stable for discharge. Discussed reasons to return to the emergency department. Patient agrees with treatment plan. The patients vital signs are stable and the patient is stable for outpatient follow-up and treatment. Patient discharged home, stable and in no acute distress. Diagnosis Primary Impression: Asthma exacerbation Qualified Codes: J45.901 - Unspecified asthma with (acute) exacerbation Additional Impression: Chest wall pain Referrals: Floor Steward/Stewardess Primary Care Physician Patient Instructions: Asthma (ED), Chest Wall Pain (ED), General Instructions Additional Instructions: Use albuterol inhaler as needed for shortness of breath and/or wheezing Take oral steroids as prescribed and complete full course Tylenol as directed and as needed for pain Avoid asthma triggers such as smoking cigarettes, second hand smoke, dust, known allergens Follow-up with primary care provider Return to emergency department immediately with worsening of symptoms Med/Other Pt SpecificInfo: Prescription(s) given Scripts Albuterol Neb (Albuterol Neb) 2.5 Mg/3 Ml Neb 2.5 MG NEB Q4HR NEB Y for SHORTNESS OF BREATH, #60 NEBULE 0 Refills Prov: Amanda Sloan 11/19/17 Prednisone (Deltasone) 20 Mg Tab 40 MG PO DAILY for 4 Days, #8 TAB 0 Refills start 11/20/2017 Prov: Amanda Sloan 11/19/17 Albuterol 18 GM Inh (Ventolin Hfa 18 GM Inh) 90 Mcg/Act Aer 2 PUFF INH Q4-6H Y for SOB/WHEEZING, #1 INHALER 0 Refills Prov: Amanda Sloan 11/19/17 Disposition: 01 DISCHARGE HOME Condition: Stable Amanda Sloan Nov 19, 2017 17:29
[2017-11-19] MEDS ORDERED: predniSONE 20 MG TAB PO ONE (17:30)
[2017-11-19] MEDS ORDERED: ACETAMINOPHEN 325 MG TAB PO ONE (17:30)
[2017-11-19] MEDS ORDERED: RESP: ALBUTEROL 2.5 MG/IPRATROPIUM 0.5 MG NEB (SCH) INH ONE (17:30)
--- NOTE | 2017-11-19 17:55 | RADRPT ---
EXAM DATE/TIME: 11/19/2017 17:40 [facility] COMPARISON: CHEST SINGLE AP, December 28, 2016, 15:23. INDICATIONS : Shortness of breath, Asthma attack started today. MEDICAL HISTORY : Asthma. SURGICAL HISTORY : None. ENCOUNTER: Initial ACUITY: 1 day PAIN SCORE: 5/10 LOCATION: chest Center FINDINGS: A single view of the chest demonstrates the lungs to be symmetrically aerated without evidence of mas s, infiltrate or effusion. The cardiomediastinal contours are unremarkable. Osseous structures are intact. CONCLUSION: 1. No acute cardiopulmonary disease. Malcom Seals MD on November 19, 2017 at 17:52 Board Certified Radiologist. This report was verified electronically.
[2017-11-19] MEDS ORDERED: VENTAER INH (18:13)
[2017-11-19] MEDS ORDERED: PRED-503 PO (18:13)
[2017-11-19] MEDS ORDERED: ALBUTEROL SULFATE 90 MCG/ACT HFA 8 GM INHALER INH ONE (18:15)
[2017-11-19] MEDS ORDERED: ALBU0.08 NEB (18:16)
--- NOTE | 2017-11-19 18:22 | PD ---
Data Data Last Documented VS Vital Signs Date Time Temp Pulse Resp B/P (MAP) Pulse Ox O2 Delivery O2 Flow Rate FiO2 11/19/17 18:17 100 11/19/17 16:51 98.2 80 16 Orders Orders Chest, Single Ap (11/19/17 17:28) Prednisone (Deltasone) (11/19/17 17:30) Albuterol-Ipratropium Neb (Duoneb Neb) (11/19/17 17:30) Acetaminophen (Tylenol) (11/19/17 17:30) Ed Discharge Order (11/19/17 18:13) Albuterol Hfa Inh (Proair Hfa Inh) (11/19/17 18:15) MDM Supervised Visit with KIT: Yes Narrative Course The history, exam, and medical decision-making in the associated mid-level provider note were completed with my assistance. I reviewed and agree with the findings presented. I attest that I had a [id number] encounter with the patient on the same day, and personally performed and documented my assessment and findings in the medical record. *My assessment and Findings: 21-year-old young woman, history of asthma, now , worsening asthma symptoms for the past day or so. Looks well. Use her grandmother's inhaler this morning which helped some. She does not have any medications of her own. Some chills but no fever or other URI symptoms. On my exam she's had some bronchodilators already and sounds improved with minimal to no wheezing. She has good air movement and no respiratory distress. Agree with simple treatment for asthma exacerbation. No other evidence of PE. Diagnosis Primary Impression: Asthma exacerbation Qualified Codes: J45.901 - Unspecified asthma with (acute) exacerbation Additional Impression: Chest wall pain Referrals: Crop Picker Primary Care Physician Patient Instructions: General Instructions, Asthma (ED), Chest Wall Pain (ED) Departure Forms: Tests/Procedures Additional Instruction: Use albuterol inhaler as needed for shortness of breath and/or wheezing Take oral steroids as prescribed and complete full course Tylenol as directed and as needed for pain Avoid asthma triggers such as smoking cigarettes, second hand smoke, dust, known allergens Follow-up with primary care provider Return to emergency department immediately with worsening of symptoms Scripts Albuterol Neb (Albuterol Neb) 2.5 Mg/3 Ml Neb 2.5 MG NEB Q4HR NEB Y for SHORTNESS OF BREATH, #60 NEBULE 0 Refills Prov: Amanda Sloan CYTOLOGIST 11/19/17 Prednisone (Deltasone) 20 Mg Tab 40 MG PO DAILY for 4 Days, #8 TAB 0 Refills start 11/20/2017 Prov: Amanda Sloan CYTOLOGIST 11/19/17 Albuterol 18 GM Inh (Ventolin Hfa 18 GM Inh) 90 Mcg/Act Aer 2 PUFF INH Q4-6H Y for SOB/WHEEZING, #1 INHALER 0 Refills Prov: Amanda Sloan CYTOLOGIST 11/19/17 Disposition: 01 DISCHARGE HOME Condition: Stable Ravi Benavides MD Nov 19, 2017 18:22
== END 2017-11-19 18:59 | disposition home or self-care (01) ==
LOC: NEPD 16:47
DX: O99.511 Diseases of the respiratory system complicating pregnancy, first trimester (principal); J45.901 Unspecified asthma with (acute) exacerbation; R07.89 Other chest pain; R06.02 Shortness of breath; O99.341 Other mental disorders complicating pregnancy, first trimester; F32.9 Major depressive disorder, single episode, unspecified; Z3A.01 Less than 8 weeks gestation of pregnancy
CPT/HCPCS: 71045; 94664; 99283; J7512

== ENCOUNTER 2017-12-03 14:12 | Emergency (ER) | payer MEDICAID ==
[~2017-12-03 14:12] MED LIST changes: +ALBU0.08 NEB; -MACR100C2 PO; +PRED-503 PO; +VENTAER INH; -ZOFR4TAB3 SL
[2017-12-03 14:18] VITALS: BP 118/78; PULSE 99; RESP 14; TEMP 98.2; O2SAT 98
--- NOTE | 2017-12-03 14:34 | PD ---
HPI . Constipation Chief Complaint: GI Complaint Time Seen by Provider: 14:21 Travel History International Travel<30 days: No Contact w/Intl Traveler<30days: No Traveled to known affect area: No History of Present Illness HPI Patient presents with chief complaint of constipation. Onset was 2 weeks ago. She states she has not had a bowel movement at all for 2 weeks. She states that she has tried MiraLAX without relief. She states she presents to us today because she is now having difficulty urinating as well. She has the urge to urinate frequently but can only pass a few drops at a time. She is and states that she is having some nausea. She is tolerating liquids. She states that she has her first appointment on the . The patient was seen here on 11/16 for hyperemesis and again on 11/19 for asthma. PFSH Past Medical History Asthma: Yes Depression: Yes Diminished Hearing: No Reproductive: Yes (endometriosis ) Respiratory: Yes (asthma) Immunizations Current: No : 2 Para: 0 Miscarriage: 1 : 0 Past Surgical History Appendectomy: Yes Social History Alcohol Use: No Tobacco Use: No Substance Use: No Allergies-Medications (Allergen,Severity, Reaction): Coded Allergies: No Known Allergies (Verified Adverse Reaction, Unknown, 11/19/17) Reported Meds & Prescriptions Reported Meds & Active Scripts Active Albuterol Neb (Albuterol Sulfate) 2.5 Mg/3 Ml Neb 2.5 Mg NEB Q4HR NEB PRN Deltasone (Prednisone) 20 Mg Tab 40 Mg PO DAILY 4 Days start 11/20/2017 Ventolin Hfa 18 GM Inh (Albuterol Sulfate) 90 Mcg/Act Aer 2 Puff INH Q4-6H PRN Review of Systems Except as stated in HPI: all other systems reviewed are Neg General / Constitutional: No: Fever, Chills Gastrointestinal: Positive: Nausea, Constipation, No: Vomiting, Diarrhea Genitourinary: Positive: Urgency, Frequency, No: Dysuria Physical Exam Narrative GENERAL: Awake and alert and in no acute distress. SKIN: warm/dry. HEAD: Normocephalic. Atraumatic. EYES: Pupils equal and round. No scleral icterus. No injection or drainage. ENT: No nasal bleeding or discharge. Mucous membranes pink and moist. NECK: Trachea midline. Full range of motion without pain.. CARDIOVASCULAR: Regular rate and rhythm. RESPIRATORY: No accessory muscle use. Clear to auscultation. Breath sounds equal bilaterally. GASTROINTESTINAL: Abdomen soft. Nontender. Bowel sounds present. Nondistended. RECTAL: No significant stool in the rectal vault. MUSCULOSKELETAL: No obvious deformities. NEUROLOGICAL: Awake and alert. No obvious cranial nerve deficits. Motor grossly within normal limits. Normal speech. PSYCHIATRIC: Appropriate mood and affect; insight and judgment normal. Data Data Last Documented VS Vital Signs Date Time Temp Pulse Resp B/P (MAP) Pulse Ox O2 Delivery O2 Flow Rate FiO2 12/03/17 14:18 98.2 99 14 118/78 (91) 98 Orders Orders Urinalysis - C+S If Indicated (12/03/17 14:24) Urine Culture (12/03/17 14:35) Labs Laboratory Tests Test 12/03/17 14:35 Urine Color YELLOW Urine Turbidity HAZY Urine pH 6.0 Urine Specific [place] 1.028 Urine Protein TRACE mg/dL Urine Glucose (UA) NEG mg/dL Urine Ketones NEG mg/dL Urine Occult Blood TRACE Urine Nitrite NEG Urine Bilirubin NEG Urine Urobilinogen 4.0 MG/DL Urine Leukocyte Esterase LARGE Urine RBC 5 /hpf Urine WBC 29 /hpf Urine Squamous Epithelial Cells 34 /hpf Urine Bacteria OCC /hpf Urine Hyaline Casts 2 /lpf Urine Mucus MANY /lpf Microscopic Urinalysis Comment CULTURE INDICATED MDM Medical Decision Making Medical Screen Exam Complete: Yes Emergency Medical Condition: Yes Differential Diagnosis Differential diagnosis of constipation includes medication effect, irritable bowel syndrome, inadequate fiber, bowel obstruction Narrative Course This patient presents complaining with constipation. She is also complaining with urinary frequency and urgency. UA is pending. UA is positive for UTI. She'll be discharged on Macrobid for UTI. She'll be given a prescription for GoLYTELY for the constipation. H[facility]Prompt Point of Care Internal Pos. & Neg. Controls: Passed Fecal Specimen Occult Blood: Negative Diagnosis Primary Impression: Constipation Qualified Codes: K59.00 - Constipation, unspecified Additional Impression: Urinary tract infection Qualified Codes: N30.00 - Acute cystitis without hematuria Patient Instructions: Constipation (DC), General Instructions, Urinary Tract Infection in (DC) Med/Other Pt SpecificInfo: Prescription(s) given Scripts Peg-Electrolytes (Golytely 236 gm) 4,000 Ml Soln 4000 ML PO ONCE for Bowel Cleanser, #1 CONTAINER 0 Refills Prov: Yazmin Maxwell MD 12/03/17 Nitrofurantoin Monohydrate Macrocrystals (Macrobid) 100 Mg Cap 100 MG PO BID for Infection for 5 Days, #10 CAP 0 Refills Prov: Yazmin Maxwell MD 12/03/17 Disposition: 01 DISCHARGE HOME Condition: Stable Yazmin Maxwell MD Dec 03, 2017 14:34
[2017-12-03 15:14] LABS: BACTERIA, URINE OCC /hpf; BILIRUBIN, URINE NEG (NEG); BLOOD, URINE TRACE (NEG); GLUCOSE,URINE NEG (NEG); HYALINE CAST, URINE 2 /lpf (RARE); KETONE, URINE NEG (NEG); MUCUS URINE MANY /lpf (OCC); NITRITE,URINE NEG (NEG); SQUAMOUS EPITHELIAL CELL URINE 34 /hpf (0-5); URINE COLOR YELLOW (YELLW/STRAW); URINE LEUKOCYTE ESTERASE LARGE (NEG)
[2017-12-03] MEDS ORDERED: MACR100C2 PO (15:18)
[2017-12-03] MEDS ORDERED: COLY4000S PO (15:18)
[2017-12-03 15:27] VITALS: BP 112/64
[2017-12-08] MEDS ORDERED: DOXY10TA PO (09:32)
[2017-12-08] MEDS ORDERED: PRENMIS7 PO (09:32)
== END 2017-12-03 19:19 | disposition home or self-care (01) ==
LOC: NEPD 14:12
DX: O99.619 Diseases of the digestive system complicating pregnancy, unspecified trimester (principal); K59.00 Constipation, unspecified; O23.10 Infections of bladder in pregnancy, unspecified trimester; N30.00 Acute cystitis without hematuria; O99.519 Diseases of the respiratory system complicating pregnancy, unspecified trimester; J45.909 Unspecified asthma, uncomplicated; O99.340 Other mental disorders complicating pregnancy, unspecified trimester; F32.9 Major depressive disorder, single episode, unspecified
CPT/HCPCS: 81001; 87086; 99284

== ENCOUNTER 2017-12-13 14:21 | Emergency (ER) | payer MEDICAID ==
[~2017-12-13] VITALS: Ht 154.9 cm; Wt 54.5 kg
[~2017-12-13 14:21] MED LIST changes: +COLY4000S PO; +DOXY10TA PO; +PRENMIS7 PO
[2017-12-13 14:27] VITALS: BP 119/74; PULSE 72; RESP 16; TEMP 98; O2SAT 98
[2017-12-13 15:27] LABS: BACTERIA, URINE RARE /hpf; BILIRUBIN, URINE NEG (NEG); BLOOD, URINE NEG (NEG); GLUCOSE,URINE NEG (NEG); KETONE, URINE NEG (NEG); MUCUS URINE FEW /lpf (OCC); NITRITE,URINE NEG (NEG); PH, URINE 6.5 (5.0-8.5); SQUAMOUS EPITHELIAL CELL URINE 4 /hpf (0-5); URINE COLOR YELLOW (YELLW/STRAW); URINE LEUKOCYTE ESTERASE TRACE (NEG)
[2017-12-13 15:45] LABS: BASOPHIL % 0.2 % (0.0-2.0); EOSINOPHIL # 0.1 TH/MM3 (0-0.4); EOSINOPHIL % 0.9 % (0.0-4.0); HEMATOCRIT 37.2 % (35.0-46.0); HEMOGLOBIN 13.3 GM/DL (11.6-15.3); LYMPH % 20.4 % (9.0-44.0); LYMPHOCYTE # 1.7 TH/MM3 (1.0-4.8); MEAN CELL VOLUME 85.2 FL (80.0-100.0); MEAN CORPUSCULAR HEMOGLOBIN 30.5 PG (27.0-34.0); MEAN CORPUSCULAR HGB CONC 35.8 % (32.0-36.0); MEAN PLATELET VOLUME 9.1 FL (7.0-11.0); MONO % 5.9 % (0.0-8.0); MONOCYTE # 0.5 TH/MM3 (0-0.9); NEUT % 72.6 % (16.0-70.0); PLATELET COUNT 214 TH/MM3 (150-450); RED BLOOD COUNT 4.37 MIL/MM3 (4.00-5.30); WHITE BLOOD COUNT 8.3 TH/MM3 (4.0-11.0)
[2017-12-13 16:01] LABS: ALBUMIN 3.6 GM/DL (3.4-5.0); ALT (GPT) 17 U/L (9-42); AST (GOT) 12 U/L (16-38); BICARBONATE 27.3 MEQ/L (21.0-32.0); BLOOD UREA NITROGEN 6 MG/DL (7-18); CALCIUM 8.9 MG/DL (8.5-10.1); CHLORIDE 102 MEQ/L (98-107); CREATININE 0.53 MG/DL (0.50-1.00); GLOMERULAR FILTRATION RATE 149 ML/MIN (>89); GLUCOSE,RANDOM 75 MG/DL (74-106); SODIUM (NA) 137 MEQ/L (136-145)
[2017-12-13 16:18] LABS: ALKALINE PHOSPHATASE 61 U/L (45-117); TOTAL BILIRUBIN ADULT 0.2 MG/DL (0.2-1.0); TOTAL PROTEIN 7.6 GM/DL (6.4-8.2)
--- NOTE | 2017-12-13 16:59 | PD ---
HPI Chief Complaint: Related Problem Time Seen by Provider: 16:41 Travel History International Travel<30 days: No Contact w/Intl Traveler<30days: No Traveled to known affect area: No History of Present Illness HPI 21-year-old female, approximately 12 weeks , presents to the emergency department with complaint of dysuria, bladder fullness, low pelvic pain 10 days. Denies vaginal odor. Was seen here on December 03 and treated with Macrobid for urinary tract infection and she completed the antibiotics and continued current symptoms. Reports onset of vaginal discharge 5 days ago. Reports dysuria. Reports urinary frequency. Denies vaginal bleeding, leaking. Reports vomiting in the mornings secondary to ; last vomited 2 days ago. Denies fevers. Symptoms are [id number] in severity. No known aggravating or relieving factors. Has not taken any other medications other than the antibiotics were tried any other treatments to alleviate her symptoms. Denies STD exposure. No known allergies. Primary care provider unknown. 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 PFSH Past Medical History Asthma: Yes Depression: Yes Diminished Hearing: No Reproductive: Yes (endometriosis ) Respiratory: Yes (asthma) Immunizations Current: No ?: : 2 Para: 0 Miscarriage: 1 : 0 Past Surgical History Appendectomy: Yes Social History Alcohol Use: No Tobacco Use: No Substance Use: No Allergies-Medications (Allergen,Severity, Reaction): Coded Allergies: No Known Allergies (Verified Adverse Reaction, Unknown, 12/13/17) Reported Meds & Prescriptions Reported Meds & Active Scripts Active Keflex (Cephalexin) 500 Mg Cap 500 Mg PO Q12H 7 Days Diclegis (Doxylamine-Pyridoxine) 10-10 Mg Tab 2 Tab PO HS Albuterol Neb (Albuterol Sulfate) 2.5 Mg/3 Ml Neb 2.5 Mg NEB Q4HR NEB PRN Ventolin Hfa 18 GM Inh (Albuterol Sulfate) 90 Mcg/Act Aer 2 Puff INH Q4-6H PRN Review of Systems Except as stated in HPI: all other systems reviewed are Neg Physical Exam Narrative GENERAL: Well-nourished, well-developed female patient, in no acute distress; afebrile, nontoxic-appearing SKIN: Warm and dry. HEAD: Atraumatic. Normocephalic. EYES: Pupils equal and round. No scleral icterus. No injection or drainage. ENT: Mucous membranes pink and moist. NECK: Trachea midline. No lymphadenopathy. CARDIOVASCULAR: Regular rate and rhythm. No murmur appreciated. RESPIRATORY: No accessory muscle use. Clear to auscultation. Breath sounds equal bilaterally. GASTROINTESTINAL: Abdomen soft, non-tender, nondistended. Bilateral pelvic region nontender to palpation. Hepatic and splenic margins not palpable. Bladder tenderness on palpation; nondistended. No guarding, rigidity, rebound tenderness. PELVIC: Exam done in the presence of a nurse. Speculum exam reveals edematous and erythematous cervix with creamy white, mucopurulent, nonodorous discharge. Bimanual exam reveals no palpable masses or adnexa tenderness, no uterine tenderness. Negative cervical motion tenderness. BACK: No CVA tenderness. MUSCULOSKELETAL: No obvious deformities. No clubbing. No cyanosis. No edema. NEUROLOGICAL: Awake and alert. No obvious cranial nerve deficits. Motor grossly within normal limits. Normal speech. PSYCHIATRIC: Appropriate mood and affect; insight and judgment normal. Data Data Last Documented VS Vital Signs Date Time Temp Pulse Resp B/P (MAP) Pulse Ox O2 Delivery O2 Flow Rate FiO2 12/13/17 14:27 98.0 72 16 119/74 (89) 98 Orders Orders Beta Hcg (Quant/Titer) (12/13/17 14:29) Complete Blood Count With Diff (12/13/17 14:29) Comprehensive Metabolic Panel (12/13/17 14:29) Urinalysis - C+S If Indicated (12/13/17 14:29) Ed Urine Pregnancytest Poc (12/13/17 14:48) Gc And Chlamydia Pcr (12/13/17 16:56) Wet Prep Profile (12/13/17 16:56) Heart Tones (12/13/17 16:56) Azithromycin (Zithromax) (12/13/17 17:30) Ceftriaxone Inj (Rocephin Inj) (12/13/17 17:30) Lidocaine 1% Inj (50 Ml) (Xylocaine 1% I (12/13/17 17:30) Ondansetron Odt (Zofran Odt) (12/13/17 17:30) Ed Poc Ultrasound (12/13/17 ) Ed Discharge Order (12/13/17 18:30) Labs Laboratory Tests Test 12/13/17 14:45 12/13/17 15:01 12/13/17 17:20 Urine Color YELLOW Urine Turbidity CLEAR Urine pH 6.5 Urine Specific [place] 1.010 Urine Protein NEG mg/dL Urine Glucose (UA) NEG mg/dL Urine Ketones NEG mg/dL Urine Occult Blood NEG Urine Nitrite NEG Urine Bilirubin NEG Urine Urobilinogen LESS THAN 2.0 MG/DL Urine Leukocyte Esterase TRACE Urine RBC 1 /hpf Urine WBC 1 /hpf Urine Squamous Epithelial Cells 4 /hpf Urine Bacteria RARE /hpf Urine Mucus FEW /lpf Microscopic Urinalysis Comment CULT NOT INDICATED White Blood Count 8.3 TH/MM3 Red Blood Count 4.37 MIL/MM3 Hemoglobin 13.3 GM/DL Hematocrit 37.2 % Mean Corpuscular Volume 85.2 FL Mean Corpuscular Hemoglobin 30.5 PG Mean Corpuscular Hemoglobin Concent 35.8 % Red Cell Distribution Width 13.0 % Platelet Count 214 TH/MM3 Mean Platelet Volume 9.1 FL Neutrophils (%) (Auto) 72.6 % Lymphocytes (%) (Auto) 20.4 % Monocytes (%) (Auto) 5.9 % Eosinophils (%) (Auto) 0.9 % Basophils (%) (Auto) 0.2 % Neutrophils # (Auto) 6.0 TH/MM3 Lymphocytes # (Auto) 1.7 TH/MM3 Monocytes # (Auto) 0.5 TH/MM3 Eosinophils # (Auto) 0.1 TH/MM3 Basophils # (Auto) 0.0 TH/MM3 CBC Comment DIFF FINAL Differential Comment Blood Urea Nitrogen 6 MG/DL Creatinine 0.53 MG/DL Random Glucose 75 MG/DL Total Protein 7.6 GM/DL Albumin 3.6 GM/DL Calcium Level 8.9 MG/DL Alkaline Phosphatase 61 U/L Aspartate Amino Transf (AST/SGOT) 12 U/L Alanine Aminotransferase (ALT/SGPT) 17 U/L Total Bilirubin 0.2 MG/DL Sodium Level 137 MEQ/L Potassium Level 3.6 MEQ/L Chloride Level 102 MEQ/L Carbon Dioxide Level 27.3 MEQ/L Anion Gap 8 MEQ/L Estimat Glomerular Filtration Rate 149 ML/MIN Human Chorionic Gonadotropin, Quant 068807 MIU/ML Clue Cells (Wet Prep) NONE SEEN Vaginal Trichomonas (Wet Prep) NONE SEEN Vaginal Yeast (Wet Prep) NONE SEEN MDM Medical Decision Making Medical Screen Exam Complete: Yes Emergency Medical Condition: Yes Medical Record Reviewed: Yes Differential Diagnosis Cervicitis, PID, chlamydia, gonorrhea, vaginal yeast, bacterial vaginosis Narrative Course 21-year-old female, approximately 12 weeks , with abnormal vaginal discharge, bladder fullness, pressure, and low pelvic pain. She was seen here on October 31 and had ultrasound that verified positive IUP. She was seen on December 03 and treated for urinary tract infection. I reviewed the urine culture and it had no growth. Chlamydia, gonorrhea, wet prep, heart tones , urinalysis, UPT ordered. UPT positive. 1724: Pelvic exam positive for cervicitis. Chlamydia and gonorrhea pending. Patient empirically treated with azithromycin and Rocephin in the ER. 1811: CBC, CMP unremarkable. Urinalysis with bacteremia and I will treat with Keflex. Dr. Sierra will perform beside US POC; see her procedure note. Keflex prescribed for home. Instructed patient to follow up with primary care provider. Patient verbalizes understanding and agreement with treatment plan. Patient is medically cleared and stable for discharge. Discussed reasons to return to the emergency department. Patient agrees with treatment plan. The patients vital signs are stable and the patient is stable for outpatient follow- up and treatment. Patient discharged home, stable and in no acute distress. 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
[2017-12-13] MEDS ORDERED: AZITHROMYCIN 250 MG TAB PO ONE (17:30)
[2017-12-13] MEDS ORDERED: ONDANSETRON ODT 4 MG TAB PO ONE (17:30)
[2017-12-13] MEDS ORDERED: cefTRIAXone 250 MG VIAL IM ONE (17:30)
[2017-12-13] MEDS ORDERED: LIDOCAINE HCL 1% 50 ML VIAL IM ONE (17:30)
[2017-12-13] MEDS ORDERED: CEPH-460 PO (18:17)
--- NOTE | 2017-12-13 18:17 | PD ---
Physical Exam Narrative I, Dr. Sierra, have reviewed the advance practice practitioner's documentation and am in agreement, met with the patient face to face, made the diagnosis, and the medical decision making was done by me. *My assessment and Findings: UTI vs. bacterial vaginosis or maria fernanda 21yo F who is 12 weeks with suprapubic pain. Denies any fever, vaginal bleeding. Abdominal exam unremarkable. Labs reviewed, no leukocytosis. bHCG [id number]. UA showed rare bacteria. Pt does have symptoms such as dysuria so will treat since she is . Wet prep negative. Bedside US showed intrauterine gestation with normal heart rate and movement. Pt given zofran and tolerating PO. Return precautions given. Data Data Last Documented VS Vital Signs Date Time Temp Pulse Resp B/P (MAP) Pulse Ox O2 Delivery O2 Flow Rate FiO2 12/13/17 14:27 98.0 72 16 119/74 (89) 98 Orders Orders Beta Hcg (Quant/Titer) (12/13/17 14:29) Complete Blood Count With Diff (12/13/17 14:29) Comprehensive Metabolic Panel (12/13/17 14:29) Urinalysis - C+S If Indicated (12/13/17 14:29) Ed Urine Pregnancytest Poc (12/13/17 14:48) Gc And Chlamydia Pcr (12/13/17 16:56) Wet Prep Profile (12/13/17 16:56) Heart Tones (12/13/17 16:56) Azithromycin (Zithromax) (12/13/17 17:30) Ceftriaxone Inj (Rocephin Inj) (12/13/17 17:30) Lidocaine 1% Inj (50 Ml) (Xylocaine 1% I (12/13/17 17:30) Ondansetron Odt (Zofran Odt) (12/13/17 17:30) Ed Poc Ultrasound (12/13/17 ) Ed Discharge Order (12/13/17 18:30) Labs Laboratory Tests Test 12/13/17 14:45 12/13/17 15:01 12/13/17 17:20 Urine Color YELLOW Urine Turbidity CLEAR Urine pH 6.5 Urine Specific [place] 1.010 Urine Protein NEG mg/dL Urine Glucose (UA) NEG mg/dL Urine Ketones NEG mg/dL Urine Occult Blood NEG Urine Nitrite NEG Urine Bilirubin NEG Urine Urobilinogen LESS THAN 2.0 MG/DL Urine Leukocyte Esterase TRACE Urine RBC 1 /hpf Urine WBC 1 /hpf Urine Squamous Epithelial Cells 4 /hpf Urine Bacteria RARE /hpf Urine Mucus FEW /lpf Microscopic Urinalysis Comment CULT NOT INDICATED White Blood Count 8.3 TH/MM3 Red Blood Count 4.37 MIL/MM3 Hemoglobin 13.3 GM/DL Hematocrit 37.2 % Mean Corpuscular Volume 85.2 FL Mean Corpuscular Hemoglobin 30.5 PG Mean Corpuscular Hemoglobin Concent 35.8 % Red Cell Distribution Width 13.0 % Platelet Count 214 TH/MM3 Mean Platelet Volume 9.1 FL Neutrophils (%) (Auto) 72.6 % Lymphocytes (%) (Auto) 20.4 % Monocytes (%) (Auto) 5.9 % Eosinophils (%) (Auto) 0.9 % Basophils (%) (Auto) 0.2 % Neutrophils # (Auto) 6.0 TH/MM3 Lymphocytes # (Auto) 1.7 TH/MM3 Monocytes # (Auto) 0.5 TH/MM3 Eosinophils # (Auto) 0.1 TH/MM3 Basophils # (Auto) 0.0 TH/MM3 CBC Comment DIFF FINAL Differential Comment Blood Urea Nitrogen 6 MG/DL Creatinine 0.53 MG/DL Random Glucose 75 MG/DL Total Protein 7.6 GM/DL Albumin 3.6 GM/DL Calcium Level 8.9 MG/DL Alkaline Phosphatase 61 U/L Aspartate Amino Transf (AST/SGOT) 12 U/L Alanine Aminotransferase (ALT/SGPT) 17 U/L Total Bilirubin 0.2 MG/DL Sodium Level 137 MEQ/L Potassium Level 3.6 MEQ/L Chloride Level 102 MEQ/L Carbon Dioxide Level 27.3 MEQ/L Anion Gap 8 MEQ/L Estimat Glomerular Filtration Rate 149 ML/MIN Human Chorionic Gonadotropin, Quant [id number] MIU/ML Clue Cells (Wet Prep) NONE SEEN Vaginal Trichomonas (Wet Prep) NONE SEEN Vaginal Yeast (Wet Prep) NONE SEEN Chlamydia trachomatis DNA (PCR) NOT DETECTED Neisseria gonorrhoeae DNA (PCR) NOT DETECTED [facility] Supervised Visit with KIT: Yes Procedures Procedure Narrative Emergency Department Pelvic ultrasound was performed with patient consent. The curvilinear probe was used in the transverse and sagittal views within the suprapubic region revealing single intrauterine . heart rate was 156bpm. Diagnosis Primary Impression: UTI (urinary tract infection) Qualified Codes: N39.0 - Urinary tract infection, site not specified Patient Instructions: General Instructions Departure Forms: Tests/Procedures Additional Instruction: Please follow up with your OBGYN in 2-3 days. Return to the ED if symptoms worsen. Med/Other Pt SpecificInfo: Prescription(s) given Scripts Cephalexin (Keflex) 500 Mg Cap 500 MG PO Q12H for Infection for 7 Days, #14 CAP 0 Refills Prov: Amanda Sloan 12/13/17 Disposition: 01 DISCHARGE HOME Condition: Stable Josselin Sierra Dec 13, 2017 18:17
== END 2017-12-13 18:47 | disposition home or self-care (01) ==
LOC: NEPD 14:21
DX: O23.41 Unspecified infection of urinary tract in pregnancy, first trimester (principal); O23.511 Infections of cervix in pregnancy, first trimester; O99.511 Diseases of the respiratory system complicating pregnancy, first trimester; J45.909 Unspecified asthma, uncomplicated; O26.891 Other specified pregnancy related conditions, first trimester; R10.2 Pelvic and perineal pain; Z3A.12 12 weeks gestation of pregnancy
CPT/HCPCS: 80053; 81001; 84702; 84703; 85025; 87210; 87491; 87591; 96372; 99284; J0696

== ENCOUNTER 2017-12-20 14:20 | Emergency (ER) | payer MEDICAID ==
[~2017-12-20] VITALS: Ht 154.9 cm; Wt 54.1 kg
[~2017-12-20 14:20] MED LIST changes: +CEPH-460 PO; -COLY4000S PO; -PRED-503 PO; -PRENMIS7 PO
[2017-12-20 14:21] VITALS: BP 132/78; PULSE 95; RESP 18; TEMP 98.6; O2SAT 99
[2017-12-20 15:44] LABS: AUTOMATED NEUTROPHIL # 6.1 TH/MM3 (1.8-7.7); BASOPHIL % 0.3 % (0.0-2.0); EOSINOPHIL % 0.4 % (0.0-4.0); HEMATOCRIT 39.1 % (35.0-46.0); HEMOGLOBIN 13.5 GM/DL (11.6-15.3); LYMPH % 17.3 % (9.0-44.0); LYMPHOCYTE # 1.4 TH/MM3 (1.0-4.8); MEAN CELL VOLUME 86.1 FL (80.0-100.0); MEAN CORPUSCULAR HEMOGLOBIN 29.8 PG (27.0-34.0); MEAN CORPUSCULAR HGB CONC 34.6 % (32.0-36.0); MEAN PLATELET VOLUME 8.6 FL (7.0-11.0); MONO % 5.6 % (0.0-8.0); MONOCYTE # 0.4 TH/MM3 (0-0.9); NEUT % 76.4 % (16.0-70.0); PLATELET COUNT 237 TH/MM3 (150-450); RED BLOOD COUNT 4.54 MIL/MM3 (4.00-5.30); RED CELL DISTRIBUTION WIDTH 13.2 % (11.6-17.2); WHITE BLOOD COUNT 7.9 TH/MM3 (4.0-11.0)
[2017-12-20 15:56] LABS: AMORPHOUS SEDIMENT, URINE OCC; BACTERIA, URINE FEW /hpf; BILIRUBIN, URINE NEG (NEG); BLOOD, URINE NEG (NEG); GLUCOSE,URINE NEG (NEG); KETONE, URINE 40 mg/dL (NEG); MUCUS URINE FEW /lpf (OCC); NITRITE,URINE NEG (NEG); PH, URINE 6.5 (5.0-8.5); SQUAMOUS EPITHELIAL CELL URINE 14 /hpf (0-5); URINE COLOR YELLOW (YELLW/STRAW); URINE LEUKOCYTE ESTERASE TRACE (NEG)
[2017-12-20 16:01] LABS: ALBUMIN 3.6 GM/DL (3.4-5.0); AST (GOT) 16 U/L (16-38); BICARBONATE 26.7 MEQ/L (21.0-32.0); BLOOD UREA NITROGEN 6 MG/DL (7-18); CALCIUM 9.5 MG/DL (8.5-10.1); CHLORIDE 102 MEQ/L (98-107); CREATININE 0.61 MG/DL (0.50-1.00); GLOMERULAR FILTRATION RATE 126 ML/MIN (>89); GLUCOSE,RANDOM 94 MG/DL (74-106); SODIUM (NA) 134 MEQ/L (136-145)
[2017-12-20 16:02] LABS: ALT (GPT) 16 U/L (9-42)
[2017-12-20 16:19] LABS: ALKALINE PHOSPHATASE 61 U/L (45-117); TOTAL BILIRUBIN ADULT 0.2 MG/DL (0.2-1.0)
[2017-12-20] MEDS ORDERED: SODIUM CHLOR 0.9% 1000 ML INJ 1,000 ML IV SCH (16:54)
[2017-12-20] MEDS ORDERED: ACETAMINOPHEN 1000 MG/100 ML 65 ML IV ONE (17:00)
[2017-12-20] MEDS ORDERED: ONDANSETRON HCL 4 MG/2 ML VIAL IVP ONE (17:00)
[2017-12-20] MEDS ORDERED: SODIUM CHLORIDE 0.9% FLUSH 10 ML FLUSH IVF PRN (17:00)
--- NOTE | 2017-12-20 17:03 | PD ---
HPI Chief Complaint: Medical Clearance Time Seen by Provider: 16:40 Travel History International Travel<30 days: No Contact w/Intl Traveler<30days: No Traveled to known affect area: No History of Present Illness HPI 21-year-old female, approximately 13 weeks , complaining of nausea and vomiting 3 days. Complaining of weakness and dizziness. Complaining of left lower quadrant abdominal pain that radiates to her left lower back. Is also concerned that her depression and anxiety is worsening. She denies suicidal or homicidal ideations. Called her OB, [facility] now, and was told to come to the ER. Denies fevers. Denies recent illness to include nasal congestion, cough, sore throat, ear pain. Denies dysuria. Reports diarrhea. Denies vaginal discharge, odor, vaginal leaking, vaginal bleeding. Rates abdominal pain 9/10 at its worst. 7/10 now. No known aggravating or relieving factors. Has taken Tylenol for symptom management; last taken yesterday. Has also been taking Diclegis for vomiting that is prescribed by her OB. 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 Primary care provider is Dr. Zuleta. Solar Manager is [facility]. No known allergies. Has no other medical complaints. No other modifying factors or associated signs and symptoms. PFSH Past Medical History Asthma: Yes Depression: Yes Diminished Hearing: No Reproductive: Yes (endometriosis ) Respiratory: Yes (asthma) Immunizations Current: No ?: : 2 Para: 0 Miscarriage: 1 : 0 Past Surgical History Appendectomy: Yes Social History Alcohol Use: No Tobacco Use: No Substance Use: No Allergies-Medications (Allergen,Severity, Reaction): Coded Allergies: No Known Allergies (Verified Adverse Reaction, Unknown, 12/20/17) Reported Meds & Prescriptions Reported Meds & Active Scripts Active Albuterol Neb (Albuterol Sulfate) 2.5 Mg/3 Ml Neb 2.5 Mg NEB Q4HR NEB PRN Ventolin Hfa 18 GM Inh (Albuterol Sulfate) 90 Mcg/Act Aer 2 Puff INH Q4-6H PRN Review of Systems Except as stated in HPI: all other systems reviewed are Neg Physical Exam Narrative GENERAL: Well-nourished, well-developed female patient, in no acute distress; afebrile; nontoxic appearing SKIN: Warm and dry. HEAD: Atraumatic. Normocephalic. EYES: Pupils equal and round. No scleral icterus. No injection or drainage. ENT: Mucosa pink and moist. Airway patent. NECK: Trachea midline. CARDIOVASCULAR: Regular rate and rhythm. No murmur appreciated. RESPIRATORY: No accessory muscle use. Clear to auscultation. Breath sounds equal bilaterally. GASTROINTESTINAL: Abdomen soft, tenderness on palpation to left lower quadrant, nondistended. Hepatic and splenic margins not palpable. Bowel sounds are active 4 quadrants. Nonrigid. No rebound tenderness. No guarding. BACK: No CVA tenderness. MUSCULOSKELETAL: No obvious deformities. No clubbing. No cyanosis. No edema. NEUROLOGICAL: Awake and alert. Oriented 3. No obvious cranial nerve deficits. Motor grossly within normal limits. Normal speech. PSYCHIATRIC: Appropriate mood and affect; insight and judgment normal. Data Data Last Documented VS Vital Signs Date Time Temp Pulse Resp B/P (MAP) Pulse Ox O2 Delivery O2 Flow Rate FiO2 12/20/17 14:21 98.6 95 18 132/78 (96) 99 Room Air Orders Orders Complete Blood Count With Diff (12/20/17 14:51) Comprehensive Metabolic Panel (12/20/17 14:51) Urinalysis - C+S If Indicated (12/20/17 14:51) Ed Urine Pregnancytest Poc (12/20/17 14:51) Beta Hcg (Quant/Titer) (12/20/17 14:51) Psych Screen (12/20/17 14:51) Drug Screen, Random Urine (12/20/17 14:51) Alcohol (Ethanol) (12/20/17 14:51) Influenzae A/B Antigen (12/20/17 16:54) Heart Tones (12/20/17 16:54) Ed Poc Ultrasound (12/20/17 ) Iv Access Insert/Monitor (12/20/17 16:54) Sodium Chloride 0.9% Flush (Ns Flush) (12/20/17 17:00) Ondansetron Inj (Zofran Inj) (12/20/17 17:00) Sodium Chlor 0.9% 1000 Ml Inj (Ns 1000 M (12/20/17 16:54) Acetaminophen 1000 Mg/100 Ml (Ofirmev 10 (12/20/17 17:00) Ed Poc Ultrasound (12/20/17 ) Labs Laboratory Tests Test 12/20/17 15:04 White Blood Count 7.9 TH/MM3 Red Blood Count 4.54 MIL/MM3 Hemoglobin 13.5 GM/DL Hematocrit 39.1 % Mean Corpuscular Volume 86.1 FL Mean Corpuscular Hemoglobin 29.8 PG Mean Corpuscular Hemoglobin Concent 34.6 % Red Cell Distribution Width 13.2 % Platelet Count 237 TH/MM3 Mean Platelet Volume 8.6 FL Neutrophils (%) (Auto) 76.4 % Lymphocytes (%) (Auto) 17.3 % Monocytes (%) (Auto) 5.6 % Eosinophils (%) (Auto) 0.4 % Basophils (%) (Auto) 0.3 % Neutrophils # (Auto) 6.1 TH/MM3 Lymphocytes # (Auto) 1.4 TH/MM3 Monocytes # (Auto) 0.4 TH/MM3 Eosinophils # (Auto) 0.0 TH/MM3 Basophils # (Auto) 0.0 TH/MM3 CBC Comment DIFF FINAL Differential Comment Urine Color YELLOW Urine Turbidity CLOUDY Urine pH 6.5 Urine Specific [place] 1.020 Urine Protein TRACE mg/dL Urine Glucose (UA) NEG mg/dL Urine Ketones 40 mg/dL Urine Occult Blood NEG Urine Nitrite NEG Urine Bilirubin NEG Urine Urobilinogen LESS THAN 2.0 MG/DL Urine Leukocyte Esterase TRACE Urine RBC 2 /hpf Urine Squamous Epithelial Cells 14 /hpf Urine Amorphous Sediment OCC Urine Bacteria FEW /hpf Urine Mucus FEW /lpf Microscopic Urinalysis Comment CULT NOT INDICATED Blood Urea Nitrogen 6 MG/DL Creatinine 0.61 MG/DL Random Glucose 94 MG/DL Total Protein 8.0 GM/DL Albumin 3.6 GM/DL Calcium Level 9.5 MG/DL Alkaline Phosphatase 61 U/L Aspartate Amino Transf (AST/SGOT) 16 U/L Alanine Aminotransferase (ALT/SGPT) 16 U/L Total Bilirubin 0.2 MG/DL Sodium Level 134 MEQ/L Potassium Level 3.5 MEQ/L Chloride Level 102 MEQ/L Carbon Dioxide Level 26.7 MEQ/L Anion Gap 5 MEQ/L Estimat Glomerular Filtration Rate 126 ML/MIN Human Chorionic Gonadotropin, Quant 30200 MIU/ML Urine Opiates Screen NEG Urine Barbiturates Screen NEG Urine Amphetamines Screen NEG Urine Benzodiazepines Screen NEG Urine Cocaine Screen NEG Urine Cannabinoids Screen NEG Ethyl Alcohol Level LESS THAN 3 MG/DL MDM Medical Decision Making Medical Screen Exam Complete: Yes Emergency Medical Condition: Yes Medical Record Reviewed: Yes Differential Diagnosis Vomiting during , influenza, pyelonephritis Narrative Course 20-year-old female, approximately 13 weeks gestation, with nausea, vomiting 3 days. Has been seen here multiple times during her . October 31, 2017 ultrasound concluded intrauterine . Also complaining of dizziness and weakness. C/o Depression and anxiety; denies suicidal or homicidal ideations. Patient has left lower quadrant abdominal tenderness on physical exam. Denies vaginal discharge, leaking, bleeding. I saw this patient on December 13 and treated her for cervicitis; her chlamydia and gonorrhea were negative; and she was sent home with Keflex for UTI with bacteremia. CBC, CMP, hCG, UA, UPT, toxicology, EtOH ordered in triage. 1700: CBC, CMP unremarkable. HCG 91157. UA with continued bacteremia; I treated her with Keflex 1 week ago for bacteremia and she reports taking the full Rx. Negative toxicology and ETOH. IV, normal saline bolus, Zofran, IV Tylenol, heart tones, influenza, bedside ultrasound ordered. I offered for the patient to see psychiatry and she declined. She will follow up with her primary care provider and flight reservations manager. I do not feel the patient is a threat to herself or others and feel comfortable with the patient following up outpatient. 1834: Influenza negative. FHT 156bpm. Awaiting bedside POC US. 1859: On Reexamination patient reports improvement symptoms. Denies abdominal pain. Says she feels better. 1900: POC US pending. Report given to Dr. Sierra at change of shift. See her note for final patient disposition. Amanda Sloan Dec 20, 2017 17:03
--- NOTE | 2017-12-20 19:10 | PD ---
Physical Exam Narrative I, Dr. Sierra, have reviewed the advance practice practitioner's documentation and am in agreement, met with the patient face to face, made the diagnosis, and the medical decision making was done by me. *My assessment and Findings: Hyperemesis gravidarum vs. nephrolithiasis vs. UTI 21yo F who is 13 weeks here with nausea and vomiting. Also with some left lower abdominal pain. Denies any fever, vaginal bleeding or discharge. Pt is very well appearing. Labs reviewed, no leukocytosis. H/H normal. bHCG 95759. CMP unremarkable. Utoxi negative. Alcohol negative. UA showed + squamous cells. There is few bacteria. Influenza negative. Pt was just here a week ago. Pt given NS IVF, acetaminophen, zofran and feels better. Pt said pain has resolved and she wants to eat. Tolerating PO. Pt to follow up with OBGYN. Return precautions given. Data Data Last Documented VS Vital Signs Date Time Temp Pulse Resp B/P (MAP) Pulse Ox O2 Delivery O2 Flow Rate FiO2 12/20/17 14:21 98.6 95 18 132/78 (96) 99 Room Air Orders Orders Complete Blood Count With Diff (12/20/17 14:51) Comprehensive Metabolic Panel (12/20/17 14:51) Urinalysis - C+S If Indicated (12/20/17 14:51) Ed Urine Pregnancytest Poc (12/20/17 14:51) Beta Hcg (Quant/Titer) (12/20/17 14:51) Psych Screen (12/20/17 14:51) Drug Screen, Random Urine (12/20/17 14:51) Alcohol (Ethanol) (12/20/17 14:51) Influenzae A/B Antigen (12/20/17 16:54) Heart Tones (12/20/17 16:54) Ed Poc Ultrasound (12/20/17 ) Iv Access Insert/Monitor (12/20/17 16:54) Sodium Chloride 0.9% Flush (Ns Flush) (12/20/17 17:00) Ondansetron Inj (Zofran Inj) (12/20/17 17:00) Sodium Chlor 0.9% 1000 Ml Inj (Ns 1000 M (12/20/17 16:54) Acetaminophen 1000 Mg/100 Ml (Ofirmev 10 (12/20/17 17:00) Ed Poc Ultrasound (12/20/17 ) Ed Discharge Order (12/20/17 19:29) Labs Laboratory Tests Test 12/20/17 15:04 White Blood Count 7.9 TH/MM3 Red Blood Count 4.54 MIL/MM3 Hemoglobin 13.5 GM/DL Hematocrit 39.1 % Mean Corpuscular Volume 86.1 FL Mean Corpuscular Hemoglobin 29.8 PG Mean Corpuscular Hemoglobin Concent 34.6 % Red Cell Distribution Width 13.2 % Platelet Count 237 TH/MM3 Mean Platelet Volume 8.6 FL Neutrophils (%) (Auto) 76.4 % Lymphocytes (%) (Auto) 17.3 % Monocytes (%) (Auto) 5.6 % Eosinophils (%) (Auto) 0.4 % Basophils (%) (Auto) 0.3 % Neutrophils # (Auto) 6.1 TH/MM3 Lymphocytes # (Auto) 1.4 TH/MM3 Monocytes # (Auto) 0.4 TH/MM3 Eosinophils # (Auto) 0.0 TH/MM3 Basophils # (Auto) 0.0 TH/MM3 CBC Comment DIFF FINAL Differential Comment Urine Color YELLOW Urine Turbidity CLOUDY Urine pH 6.5 Urine Specific [place] 1.020 Urine Protein TRACE mg/dL Urine Glucose (UA) NEG mg/dL Urine Ketones 40 mg/dL Urine Occult Blood NEG Urine Nitrite NEG Urine Bilirubin NEG Urine Urobilinogen LESS THAN 2.0 MG/DL Urine Leukocyte Esterase TRACE Urine RBC 2 /hpf Urine Squamous Epithelial Cells 14 /hpf Urine Amorphous Sediment OCC Urine Bacteria FEW /hpf Urine Mucus FEW /lpf Microscopic Urinalysis Comment CULT NOT INDICATED Blood Urea Nitrogen 6 MG/DL Creatinine 0.61 MG/DL Random Glucose 94 MG/DL Total Protein 8.0 GM/DL Albumin 3.6 GM/DL Calcium Level 9.5 MG/DL Alkaline Phosphatase 61 U/L Aspartate Amino Transf (AST/SGOT) 16 U/L Alanine Aminotransferase (ALT/SGPT) 16 U/L Total Bilirubin 0.2 MG/DL Sodium Level 134 MEQ/L Potassium Level 3.5 MEQ/L Chloride Level 102 MEQ/L Carbon Dioxide Level 26.7 MEQ/L Anion Gap 5 MEQ/L Estimat Glomerular Filtration Rate 126 ML/MIN Human Chorionic Gonadotropin, Quant 60864 MIU/ML Urine Opiates Screen NEG Urine Barbiturates Screen NEG Urine Amphetamines Screen NEG Urine Benzodiazepines Screen NEG Urine Cocaine Screen NEG Urine Cannabinoids Screen NEG Ethyl Alcohol Level LESS THAN 3 MG/DL MDM Supervised Visit with KIT: Yes Procedures Procedure Narrative Emergency department urinary tract ultrasound was performed with patient consent. Curvilinear probe was used in the transverse and sagittal views in the bilateral flank without evidence of hydronephrosis. Emergency Department Pelvic ultrasound was performed with patient consent. The curvilinear probe was used in the transverse and sagittal views within the suprapubic region revealing single intrauterine . heart rate was 143bpm. Diagnosis Primary Impression: Nausea & vomiting Qualified Codes: R11.2 - Nausea with vomiting, unspecified Patient Instructions: General Instructions Departure Forms: Tests/Procedures Additional Instruction: Please follow up with your OBGYN in 1-2 days. Return to the ED if symptoms worsen. Med/Other Pt SpecificInfo: Prescription(s) given Scripts Nitrofurantoin Monohydrate Macrocrystals (Macrobid) 100 Mg Cap 100 MG PO BID for Infection for 5 Days, #10 CAP 0 Refills Prov: Josselin Sierra DO 12/20/17 Acetaminophen (Tylenol) 325 Mg Tab 650 MG PO Q6H Y for PAIN SCALE 1 TO 4, #20 TAB 0 Refills Prov: Josselin Sierra DO 12/20/17 Disposition: 01 DISCHARGE HOME Condition: Stable Josselin Sierra DO Dec 20, 2017 19:10
[2017-12-20] MEDS ORDERED: TYLE325T PO (19:29)
[2017-12-20] MEDS ORDERED: MACR100C2 PO (19:29)
== END 2017-12-20 20:08 | disposition home or self-care (01) ==
LOC: NEPD 14:20
DX: O21.9 Vomiting of pregnancy, unspecified (principal); O26.891 Other specified pregnancy related conditions, first trimester; R10.32 Left lower quadrant pain; O99.511 Diseases of the respiratory system complicating pregnancy, first trimester; J45.909 Unspecified asthma, uncomplicated; Z3A.13 13 weeks gestation of pregnancy
CPT/HCPCS: 80053; 80307; 81001; 84702; 84703; 85025; 87804; 96361; 96365; 96375; 99284; J0131; J2405; J7030

== ENCOUNTER 2017-12-27 18:37 | Emergency (ER) | payer MEDICAID ==
[~2017-12-27] VITALS: Ht 154.9 cm; Wt 54.0 kg
[~2017-12-27 18:37] MED LIST changes: -CEPH-460 PO; -DOXY10TA PO; +MACR100C2 PO; +TYLE325T PO
[2017-12-27 18:38] VITALS: BP 104/59; PULSE 86; RESP 18; TEMP 98.7; O2SAT 96
[2017-12-27 19:20] LABS: AUTOMATED NEUTROPHIL # 8.3 TH/MM3 (1.8-7.7); BASOPHIL % 0.1 % (0.0-2.0); EOSINOPHIL # 0.1 TH/MM3 (0-0.4); EOSINOPHIL % 0.5 % (0.0-4.0); HEMATOCRIT 35.9 % (35.0-46.0); HEMOGLOBIN 12.9 GM/DL (11.6-15.3); LYMPH % 13.5 % (9.0-44.0); LYMPHOCYTE # 1.4 TH/MM3 (1.0-4.8); MEAN CELL VOLUME 85.1 FL (80.0-100.0); MEAN CORPUSCULAR HEMOGLOBIN 30.5 PG (27.0-34.0); MEAN CORPUSCULAR HGB CONC 35.9 % (32.0-36.0); MEAN PLATELET VOLUME 8.3 FL (7.0-11.0); MONO % 5.7 % (0.0-8.0); MONOCYTE # 0.6 TH/MM3 (0-0.9); NEUT % 80.2 % (16.0-70.0); PLATELET COUNT 215 TH/MM3 (150-450); RED BLOOD COUNT 4.22 MIL/MM3 (4.00-5.30); RED CELL DISTRIBUTION WIDTH 13.1 % (11.6-17.2); WHITE BLOOD COUNT 10.3 TH/MM3 (4.0-11.0)
[2017-12-27 19:33] LABS: BACTERIA, URINE RARE /hpf; BILIRUBIN, URINE NEG (NEG); BLOOD, URINE NEG (NEG); GLUCOSE,URINE NEG (NEG); KETONE, URINE NEG (NEG); NITRITE,URINE NEG (NEG); PH, URINE 6.5 (5.0-8.5); SQUAMOUS EPITHELIAL CELL URINE 6 /hpf (0-5); URINE COLOR LIGHT-YELLOW (YELLW/STRAW); URINE LEUKOCYTE ESTERASE LARGE (NEG)
[2017-12-27 19:37] LABS: BICARBONATE 24.4 MEQ/L (21.0-32.0); CALCIUM 8.8 MG/DL (8.5-10.1); CREATININE 0.54 MG/DL (0.50-1.00)
--- NOTE | 2017-12-27 21:21 | PD ---
HPI Chief Complaint: Related Problem Time Seen by Provider: 20:47 Travel History International Travel<30 days: No Contact w/Intl Traveler<30days: No Traveled to known affect area: No History of Present Illness HPI 21-year-old female , reportedly 13 weeks , here for evaluation of left lower quadrant abdominal pain. The patient presented to the emergency department 2 weeks ago for the same type of pain, and states that the pain has not resolved. She was found to have bacteriuria at that time and was started on Macrobid. Patient rates the pain as sharp, constant, radiates to her lower back, worse with movements. No vaginal bleeding or discharge. No fevers or chills. She has had an ultrasound to confirm an IUP, and is scheduled for an OB /MEDICAL EQUIPMENT REPAIRER physician appointment, however has not yet been seen by an SALES PROJECT COORDINATOR for this . History of appendectomy. PFSH Past Medical History Asthma: Yes Depression: Yes Diminished Hearing: No Reproductive: Yes (endometriosis ) Respiratory: Yes (asthma) Immunizations Current: No Tetanus Vaccination: Unknown ?: : 2 Para: 0 Miscarriage: 1 : 0 Past Surgical History Appendectomy: Yes Social History Alcohol Use: No Tobacco Use: No Substance Use: No Allergies-Medications (Allergen,Severity, Reaction): Coded Allergies: No Known Allergies (Verified Adverse Reaction, Unknown, 12/20/17) Reported Meds & Prescriptions Reported Meds & Active Scripts Active Keflex (Cephalexin) 500 Mg Capsule 500 Mg PO BID 7 Days Albuterol Neb (Albuterol Sulfate) 2.5 Mg/3 Ml Neb 2.5 Mg NEB Q4HR NEB PRN Ventolin Hfa 18 GM Inh (Albuterol Sulfate) 90 Mcg/Act Aer 2 Puff INH Q4-6H PRN Review of Systems Except as stated in HPI: all other systems reviewed are Neg Physical Exam Narrative GENERAL: Well-developed, well-nourished, comfortable, no apparent distress. SKIN: Focused skin assessment warm/dry. HEAD: Atraumatic. Normocephalic. EYES: Pupils equal and round. No scleral icterus. No injection or drainage. ENT: Mucous membranes pink and moist. NECK: Trachea midline. No JVD. CARDIOVASCULAR: Regular rate and rhythm. No murmur appreciated. RESPIRATORY: No accessory muscle use. Clear to auscultation. Breath sounds equal bilaterally. GASTROINTESTINAL: Abdomen soft, nondistended. Moderate left lower quadrant tenderness without peritoneal signs. Normal bowel sounds. No hernias. No masses. PELVIC: Exam performed in the presence of female nurse. Normal external genitalia. Normal appearing cervix. No abnormal of foul-smelling vaginal discharge. Os is closed. MUSCULOSKELETAL: No obvious deformities. No clubbing. No cyanosis. No edema. NEUROLOGICAL: Awake and alert. No obvious cranial nerve deficits. Motor grossly within normal limits. Normal speech. PSYCHIATRIC: Appropriate mood and affect; insight and judgment normal. Data Data Last Documented VS Vital Signs Date Time Temp Pulse Resp B/P (MAP) Pulse Ox O2 Delivery O2 Flow Rate FiO2 12/27/17 18:38 98.7 86 18 104/59 (74) 96 Room Air Orders Orders Complete Blood Count With Diff (12/27/17 18:49) Basic Metabolic Panel (Bmp) (12/27/17 18:49) Urinalysis - C+S If Indicated (12/27/17 18:49) Gc And Chlamydia Pcr (12/27/17 21:07) Wet Prep Profile (12/27/17 21:07) Ondansetron Odt (Zofran Odt) (12/27/17 21:30) Cephalexin (Keflex) (12/27/17 22:15) Labs Laboratory Tests Test 12/27/17 19:07 12/27/17 21:30 White Blood Count 10.3 TH/MM3 Red Blood Count 4.22 MIL/MM3 Hemoglobin 12.9 GM/DL Hematocrit 35.9 % Mean Corpuscular Volume 85.1 FL Mean Corpuscular Hemoglobin 30.5 PG Mean Corpuscular Hemoglobin Concent 35.9 % Red Cell Distribution Width 13.1 % Platelet Count 215 TH/MM3 Mean Platelet Volume 8.3 FL Neutrophils (%) (Auto) 80.2 % Lymphocytes (%) (Auto) 13.5 % Monocytes (%) (Auto) 5.7 % Eosinophils (%) (Auto) 0.5 % Basophils (%) (Auto) 0.1 % Neutrophils # (Auto) 8.3 TH/MM3 Lymphocytes # (Auto) 1.4 TH/MM3 Monocytes # (Auto) 0.6 TH/MM3 Eosinophils # (Auto) 0.1 TH/MM3 Basophils # (Auto) 0.0 TH/MM3 CBC Comment DIFF FINAL Differential Comment Urine Color LIGHT-YELLOW Urine Turbidity CLEAR Urine pH 6.5 Urine Specific [place] 1.005 Urine Protein NEG mg/dL Urine Glucose (UA) NEG mg/dL Urine Ketones NEG mg/dL Urine Occult Blood NEG Urine Nitrite NEG Urine Bilirubin NEG Urine Urobilinogen LESS THAN 2.0 MG/DL Urine Leukocyte Esterase LARGE Urine RBC 2 /hpf Urine WBC 4 /hpf Urine Squamous Epithelial Cells 6 /hpf Urine Bacteria RARE /hpf Microscopic Urinalysis Comment CULT NOT INDICATED Blood Urea Nitrogen 5 MG/DL Creatinine 0.54 MG/DL Random Glucose 82 MG/DL Calcium Level 8.8 MG/DL Sodium Level 133 MEQ/L Potassium Level 3.8 MEQ/L Chloride Level 101 MEQ/L Carbon Dioxide Level 24.4 MEQ/L Anion Gap 8 MEQ/L Estimat Glomerular Filtration Rate 145 ML/MIN Clue Cells (Wet Prep) NONE SEEN Vaginal Trichomonas (Wet Prep) NONE SEEN Vaginal Yeast (Wet Prep) NONE SEEN MDM Medical Decision Making Medical Screen Exam Complete: Yes Emergency Medical Condition: Yes Differential Diagnosis , round ligament pain, ovarian cyst, UTI, cystitis, PID, BV, Trichomonas Narrative Course Vital signs show heart rate 95, blood pressure 132/78, pulse ox 99% on room air , oral temp of 98.6F. CBC is unremarkable. BMP is unremarkable. UA shows large leukocyte esterase, rare bacteria. Bedside transabdominal ultrasound shows with a heart rate of 143 bpm. Wet prep is negative for yeast, negative for clue cells, negative for Trichomonas. Patient is overall very well-appearing. She does have some mild left lower quadrant tenderness. She may have an ovarian cyst or this might be round ligament pain, however I do not believe that there is no acute intra-abdominal/ surgical process causing her pain. She is stable for discharge home with follow -up with an SALES PROJECT COORDINATOR physician this week. She states she has an appointment with one next week. She was advised on when to return to the emergency department. She verbalizes understanding and agreement with plan. Procedures Procedure Narrative Bedside transabdominal ultrasound: Using the curvilinear ultrasound probe, a bedside transabdominal ultrasound was performed and shows an IUP with a heart rate of 143 bpm. Diagnosis Primary Impression: Qualified Codes: Z34.90 - Encounter for supervision of normal , unspecified, unspecified trimester Additional Impressions: Abdominal pain affecting Bacteriuria during Referrals: Lead Electrical Controls Engineer 3 days Additional Instructions: Follow-up with an SALES PROJECT COORDINATOR physician this week. Return to the emergency department for worsening symptoms or any other concerns. Scripts Ondansetron Odt (Zofran Odt) 4 Mg Tab 4 MG SL Q8HR Y for Nausea/Vomiting, #12 TAB 0 Refills Prov: Miki Mendoza MD 12/27/17 Cephalexin (Keflex) 500 Mg Capsule 500 MG PO BID for Infection for 7 Days, #14 CAP 0 Refills Prov: Miki Mendoza MD 12/27/17 Disposition: 01 DISCHARGE HOME Condition: Stable Miki Mendoza MD Dec 27, 2017 21:21
[2017-12-27] MEDS ORDERED: ONDANSETRON ODT 4 MG TAB PO ONE (21:30)
[2017-12-27] MEDS ORDERED: CEPHALEXIN MONOHYDRATE 500 MG CAP PO ONE (22:15)
[2017-12-27] MEDS ORDERED: CEPH-460 PO (22:16)
[2017-12-27] MEDS ORDERED: ZOFR4TAB3 SL (22:19)
== END 2017-12-27 22:36 | disposition home or self-care (01) ==
LOC: NEPD 18:37
DX: O26.891 Other specified pregnancy related conditions, first trimester (principal); R10.32 Left lower quadrant pain; R82.71 Bacteriuria; O99.511 Diseases of the respiratory system complicating pregnancy, first trimester; J45.909 Unspecified asthma, uncomplicated; O99.341 Other mental disorders complicating pregnancy, first trimester; F32.9 Major depressive disorder, single episode, unspecified; Z3A.13 13 weeks gestation of pregnancy; Z79.899 Other long term (current) drug therapy
CPT/HCPCS: 80048; 81001; 85025; 87210; 87491; 87591; 99283

== ENCOUNTER 2018-01-10 16:16 | Emergency (ER) | payer MEDICAID ==
[~2018-01-10] VITALS: Ht 154.9 cm; Wt 116.0 kg
[~2018-01-10 16:16] MED LIST changes: +CEPH-460 PO; -MACR100C2 PO; -TYLE325T PO; +ZOFR4TAB3 SL
[2018-01-10 16:31] VITALS: BP 106/64; PULSE 66; RESP 16; TEMP 98.1; O2SAT 100
[2018-01-10] MEDS ORDERED: SODIUM CHLOR 0.9% 1000 ML INJ 1,000 ML IV ONE ×2 (16:52→19:15)
[2018-01-10] MEDS ORDERED: METOCLOPRAMIDE HCL 10 MG/2 ML VIAL IVP ONE (17:00)
[2018-01-10] MEDS ORDERED: diphenhydrAMINE HCL 50 MG/ML VIAL IM ONE (17:00)
[2018-01-10] MEDS ORDERED: SODIUM CHLORIDE 0.9% FLUSH 10 ML FLUSH IVF PRN (17:00)
--- NOTE | 2018-01-10 17:04 | PD ---
HPI Chief Complaint: Headache Time Seen by Provider: 16:27 Travel History International Travel<30 days: No Contact w/Intl Traveler<30days: No Traveled to known affect area: No History of Present Illness HPI 22y old female with a history of migraines and 16 weeks gravid presents emergency department complaining of a migraine that started about 1 PM this afternoon. Patient states that she was working and the headache has just become progressively worse. Patient states that she had some blurry vision about 2 PM associated with photophobia. States that she felt like he was she was shaking and had felt hot and cold. Says the pain is located in the back of her head and spreads to the frontal aspect. She has not taken any medication for this migraine. Patient says she has had nausea and lower back pain associated with her . She has been prescribed Zofran for this nausea. Denies vaginal discharge or bleeding. Denies dysuria. Patient states she follows up with her filters assembler in 4 weeks. PFSH Past Medical History Asthma: Yes Depression: Yes Diminished Hearing: No Reproductive: Yes (endometriosis ) Respiratory: Yes (asthma) Immunizations Current: No ?: : 2 Para: 0 Miscarriage: 1 : 0 Past Surgical History Appendectomy: Yes Social History Alcohol Use: No Tobacco Use: No Substance Use: No Allergies-Medications (Allergen,Severity, Reaction): Coded Allergies: No Known Allergies (Verified Adverse Reaction, Unknown, 12/20/17) Reported Meds & Prescriptions Reported Meds & Active Scripts Active Metoclopramide (Metoclopramide HCl) 10 Mg Tab 10 Mg PO QID 5 Days Zofran Odt (Ondansetron Odt) 4 Mg Tab 4 Mg SL Q8HR PRN Keflex (Cephalexin) 500 Mg Capsule 500 Mg PO BID 7 Days Albuterol Neb (Albuterol Sulfate) 2.5 Mg/3 Ml Neb 2.5 Mg NEB Q4HR NEB PRN Ventolin Hfa 18 GM Inh (Albuterol Sulfate) 90 Mcg/Act Aer 2 Puff INH Q4-6H PRN Review of Systems Except as stated in HPI: all other systems reviewed are Neg Physical Exam Narrative GENERAL: Well-developed, well-nourished in mild distress SKIN: Focused skin assessment warm/dry. HEAD: Atraumatic. Normocephalic. EYES: Pt does not allow me to view her eyes with light. No obvious scleral icterus. No injection or drainage. EOMI ENT: No nasal bleeding or discharge. Mucous membranes pink and moist. NECK: Trachea midline. No JVD. No lymphadenopathy CARDIOVASCULAR: Regular rate and rhythm. No murmur appreciated. RESPIRATORY: No accessory muscle use. Clear to auscultation. Breath sounds equal bilaterally. GASTROINTESTINAL: Abdomen soft, non-tender, nondistended. No CVA tenderness MUSCULOSKELETAL: No obvious deformities. No clubbing. No cyanosis. No edema. Homans sign negative bilaterally NEUROLOGICAL: Awake and alert. No obvious cranial nerve deficits, although limited as patient reluctant to allow me to fully examine her pupils.. Motor grossly within normal limits. Normal speech. PSYCHIATRIC: Appropriate mood and affect; insight and judgment normal. Data Data Last Documented VS Vital Signs Date Time Temp Pulse Resp B/P (MAP) Pulse Ox O2 Delivery O2 Flow Rate FiO2 01/10/18 21:38 01/10/18 18:30 66 16 99 Room Air 01/10/18 16:31 98.1 Orders Orders Complete Blood Count With Diff (01/10/18 16:52) Comprehensive Metabolic Panel (01/10/18 16:52) Ecg Monitoring (01/10/18 16:52) Iv Access Insert/Monitor (01/10/18 16:52) Oximetry (01/10/18 16:52) Sodium Chloride 0.9% Flush (Ns Flush) (01/10/18 17:00) Metoclopramide Inj (Reglan Inj) (01/10/18 17:00) Sodium Chlor 0.9% 1000 Ml Inj (Ns 1000 M (01/10/18 16:52) Diphenhydramine Inj (Benadryl Inj) (01/10/18 17:00) Urinalysis - C+S If Indicated (01/10/18 17:52) Sodium Chlor 0.9% 1000 Ml Inj (Ns 1000 M (01/10/18 19:15) Ed Discharge Order (01/10/18 19:33) Labs Laboratory Tests Test 01/10/18 17:20 01/10/18 17:57 White Blood Count 9.4 TH/MM3 Red Blood Count 4.15 MIL/MM3 Hemoglobin 12.4 GM/DL Hematocrit 35.6 % Mean Corpuscular Volume 85.7 FL Mean Corpuscular Hemoglobin 30.0 PG Mean Corpuscular Hemoglobin Concent 34.9 % Red Cell Distribution Width 13.2 % Platelet Count 180 TH/MM3 Mean Platelet Volume 9.3 FL Neutrophils (%) (Auto) 76.9 % Lymphocytes (%) (Auto) 17.2 % Monocytes (%) (Auto) 5.1 % Eosinophils (%) (Auto) 0.7 % Basophils (%) (Auto) 0.1 % Neutrophils # (Auto) 7.2 TH/MM3 Lymphocytes # (Auto) 1.6 TH/MM3 Monocytes # (Auto) 0.5 TH/MM3 Eosinophils # (Auto) 0.1 TH/MM3 Basophils # (Auto) 0.0 TH/MM3 CBC Comment DIFF FINAL Differential Comment Blood Urea Nitrogen 6 MG/DL Creatinine 0.53 MG/DL Random Glucose 75 MG/DL Total Protein 7.1 GM/DL Albumin 3.3 GM/DL Calcium Level 8.7 MG/DL Alkaline Phosphatase 56 U/L Aspartate Amino Transf (AST/SGOT) 15 U/L Alanine Aminotransferase (ALT/SGPT) 17 U/L Total Bilirubin 0.2 MG/DL Sodium Level 136 MEQ/L Potassium Level 3.4 MEQ/L Chloride Level 102 MEQ/L Carbon Dioxide Level 26.2 MEQ/L Anion Gap 8 MEQ/L Estimat Glomerular Filtration Rate 147 ML/MIN Urine Color LIGHT-YELLOW Urine Turbidity CLEAR Urine pH 7.0 Urine Specific [place] 1.005 Urine Protein NEG mg/dL Urine Glucose (UA) NEG mg/dL Urine Ketones NEG mg/dL Urine Occult Blood NEG Urine Nitrite NEG Urine Bilirubin NEG Urine Urobilinogen LESS THAN 2.0 MG/DL Urine Leukocyte Esterase NEG Urine RBC LESS THAN 1 /hpf Urine WBC LESS THAN 1 /hpf Urine Squamous Epithelial Cells 2 /hpf Microscopic Urinalysis Comment CULT NOT INDICATED MDM Medical Decision Making Medical Screen Exam Complete: Yes Emergency Medical Condition: Yes Differential Diagnosis Migraine, headache, dehydration Narrative Course 22y old female with a history of migraines and 16 weeks gravid presents emergency department complaining of a migraine that started about 1 PM this afternoon. Patient states that she was working and the headache became progressively worse. Patient states that she had some blurry vision about 2 PM associated with photophobia. States that she felt like he was she was shaking and had felt hot and cold. Says the pain is located in the back of her head. She has not taken any medication for this migraine. Patient says she has had nausea and lower back pain associated with her . She has been prescribed Zofran for this nausea. Denies vaginal discharge or bleeding. Denies dysuria. Patient states she follows up with her filters assembler in 4 weeks. Vital signs stable. Physical exam findings unremarkable. No evidence of neuro deficits. Patient reluctant to allow full exam of the pupils but does exhibit EOMI without deficits. CBC & BMP Diagram 01/10/18 17:20 Total Protein 7.1, Albumin 3.3 L, Calcium Level 8.7, Alkaline Phosphatase 56, Aspartate Amino Transf (AST/SGOT) 15 L, Alanine Aminotransferase (ALT/SGPT) 17, Total Bilirubin 0.2 Benedryl and metoclopramide administered with significant improvement in symptoms. A total of 2 L NS IV fluid administered. IUP confirmed at POC US 12/27/2017. Patient does not report vaginal symptoms to include discharge or bleeding. Upon reassessment, patient was walking around the room in no acute distress. Patient says she feels much improved and is ready to go home. Patient be discharged with Reglan and advised follow-up with her filters assembler and primary care physician soon as possible. Return to the emergency department worsening or persistent symptoms. Diagnosis Primary Impression: Migraine Qualified Codes: G43.009 - Migraine without aura, not intractable, without status migrainosus Referrals: Primary Care Physician Additional Instructions: Ensure adequate fluid intake and proper nutrition. Take medications as prescribed. Follow-up with the primary care physician within 2-3 days. Follow-up with your filters assembler as soon as possible. Scripts Metoclopramide (Metoclopramide) 10 Mg Tab 10 MG PO QID for Nausea for 5 Days, TAB 0 Refills Prov: Kevin Wayne MD 01/10/18 Disposition: 01 DISCHARGE HOME Condition: Stable Cherry Jiang Jan 10, 2018 17:04
[2018-01-10 17:39] LABS: AUTOMATED NEUTROPHIL # 7.2 TH/MM3 (1.8-7.7); BASOPHIL % 0.1 % (0.0-2.0); EOSINOPHIL # 0.1 TH/MM3 (0-0.4); EOSINOPHIL % 0.7 % (0.0-4.0); HEMATOCRIT 35.6 % (35.0-46.0); HEMOGLOBIN 12.4 GM/DL (11.6-15.3); LYMPH % 17.2 % (9.0-44.0); LYMPHOCYTE # 1.6 TH/MM3 (1.0-4.8); MEAN CELL VOLUME 85.7 FL (80.0-100.0); MEAN CORPUSCULAR HGB CONC 34.9 % (32.0-36.0); MEAN PLATELET VOLUME 9.3 FL (7.0-11.0); MONO % 5.1 % (0.0-8.0); MONOCYTE # 0.5 TH/MM3 (0-0.9); NEUT % 76.9 % (16.0-70.0); PLATELET COUNT 180 TH/MM3 (150-450); RED BLOOD COUNT 4.15 MIL/MM3 (4.00-5.30); RED CELL DISTRIBUTION WIDTH 13.2 % (11.6-17.2); WHITE BLOOD COUNT 9.4 TH/MM3 (4.0-11.0)
[2018-01-10 18:00] LABS: ALBUMIN 3.3 GM/DL (3.4-5.0); AST (GOT) 15 U/L (16-38); BICARBONATE 26.2 MEQ/L (21.0-32.0); BLOOD UREA NITROGEN 6 MG/DL (7-18); CALCIUM 8.7 MG/DL (8.5-10.1); CHLORIDE 102 MEQ/L (98-107); CREATININE 0.53 MG/DL (0.50-1.00); GLOMERULAR FILTRATION RATE 147 ML/MIN (>89); GLUCOSE,RANDOM 75 MG/DL (74-106); SODIUM (NA) 136 MEQ/L (136-145)
[2018-01-10 18:01] LABS: ALT (GPT) 17 U/L (9-42)
[2018-01-10 18:03] LABS: ALKALINE PHOSPHATASE 56 U/L (45-117); TOTAL BILIRUBIN ADULT 0.2 MG/DL (0.2-1.0); TOTAL PROTEIN 7.1 GM/DL (6.4-8.2)
[2018-01-10 18:17] LABS: BILIRUBIN, URINE NEG (NEG); BLOOD, URINE NEG (NEG); GLUCOSE,URINE NEG (NEG); KETONE, URINE NEG (NEG); NITRITE,URINE NEG (NEG); SQUAMOUS EPITHELIAL CELL URINE 2 /hpf (0-5); URINE COLOR LIGHT-YELLOW (YELLW/STRAW); URINE LEUKOCYTE ESTERASE NEG (NEG)
[2018-01-10 18:29] VITALS: RESP 16; O2SAT 98
[2018-01-10 18:30] VITALS: BP 103/56; PULSE 66; RESP 16; O2SAT 99
[2018-01-10] MEDS ORDERED: METO10TA PO (19:03)
== END 2018-01-10 21:40 | disposition home or self-care (01) ==
LOC: NEPC 16:16
DX: O99.352 Diseases of the nervous system complicating pregnancy, second trimester (principal); G43.909 Migraine, unspecified, not intractable, without status migrainosus; O99.512 Diseases of the respiratory system complicating pregnancy, second trimester; J45.909 Unspecified asthma, uncomplicated; O99.342 Other mental disorders complicating pregnancy, second trimester; F32.9 Major depressive disorder, single episode, unspecified; O99.89 Other specified diseases and conditions complicating pregnancy, childbirth and the puerperium; N80.9 Endometriosis, unspecified; Z3A.16 16 weeks gestation of pregnancy
CPT/HCPCS: 80053; 81001; 85025; 96361; 96372; 96374; 99284; J1200; J2765; J7030

== ENCOUNTER → 2018-01-23 | Outpatient (CLI) | payer MEDICAID ==
[~2018-01-23] MED LIST changes: +METO10TA PO
== END ==
LOC: HPND 10:40
PROVIDERS: ATTEND Obstetrics & Gynecology
DX: O36.80X0 Pregnancy with inconclusive fetal viability, not applicable or unspecified (principal); Z36.3 Encounter for antenatal screening for malformations
CPT/HCPCS: 76805; 76817

== ENCOUNTER → 2018-02-20 | Outpatient (CLI) | payer MEDICAID | LOC: HPND 10:46 | PROVIDERS: ATTEND Obstetrics & Gynecology | DX: Z36.2 Encounter for other antenatal screening follow-up (principal) | CPT/HCPCS: 76816 ==

== ENCOUNTER 2018-02-22 14:08 | Emergency (ER) | payer MEDICAID ==
--- NOTE | 2018-02-22 14:53 | PD ---
HPI Chief Complaint Abdominal pain Date Seen: Feb 22, 2018 Time Seen: 14:42 Travel History International Travel<30 Days: No Contact w/Intl Traveler<30Days: No History of Present Illness HPI Patient is a 22 year old at 21 weeks exactly who presents with 2-3 weeks of abdominal pain. She denies leakage of fluid, vaginal bleeding, and contractions. She feels baby moving regularly. She endorses some dysuria and has history of UTIs. She denies [place]/N/V/D/fever/sick contacts/SOB/calf pain/ dizziness/seeing spots. OB care is with [facility]. She had US 02/20/2018 with showed no acute abnormalities. Weeks Gestation: 1 Para: 0 : 2 Miscarriage: 1 History Past Medical History Narrative Medical History of LP 2 years ago which was reportedly complicated Has chronic back pain Asthma - mild intermittent Obstetric History Obstetric History G1: miscarriage, unknown timing G2: current Past Surgical History Narrative Surgical appendectomy 4 years Family History Family History: Negative Social History Alcohol Use: No Tobacco Use: No Substance Abuse: No Allergies-Medications (Allergen,Severity, Reaction): Coded Allergies: No Known Allergies (Verified Allergy, Unknown, 02/22/18) Home Meds Active Scripts Metoclopramide (Metoclopramide) 10 Mg Tab, 10 MG PO QID for Nausea for 5 Days, TAB 0 Refills Prov:Kevin Wayne MD 01/10/18 Ondansetron Odt (Zofran Odt) 4 Mg Tab, 4 MG SL Q8HR Y for Nausea/Vomiting, #12 TAB 0 Refills Prov:Miki Mendoza MD 12/27/17 Cephalexin (Keflex) 500 Mg Capsule, 500 MG PO BID for Infection for 7 Days, #14 CAP 0 Refills Prov:Miki Mendoza MD 12/27/17 Albuterol Neb (Albuterol Neb) 2.5 Mg/3 Ml Neb, 2.5 MG NEB Q4HR NEB Y for SHORTNESS OF BREATH, #60 NEBULE 0 Refills Prov:Amanda Sloan [employer] SAL[employer] REPRESENTATIVE 11/19/17 Albuterol 18 GM Inh (Ventolin Hfa 18 GM Inh) 90 Mcg/Act Aer, 2 PUFF INH Q4-6H Y for SOB/WHEEZING, #1 INHALER 0 Refills Prov:Amanda Sloan [facility] 11/19/17 Review of Systems General / Constitutional: No: Fever, Chills Eyes: No: Diploplia HENT: No: Headaches, Vertigo Cardiovascular: No: Chest Pain or Discomfort, Palpitations, Syncope Respiratory: No: Cough, Short of Breath Gastrointestinal: Abdominal Pain, No: Nausea, Vomiting, Diarrhea Genitourinary: No: Urgency, Dysuria, Pelvic Pain, Vaginal Bleeding Musculoskeletal: No: Weakness, Edema Skin: No Rash, No Itching Neurologic: No: Weakness, Syncope Psychiatric: No: Anxiety, Depression Physical Exam Narrative GENERAL: Well-nourished, well-developed patient. SKIN: Warm and dry. HEAD: Normocephalic and atraumatic. EYES: No scleral icterus. No injection or drainage. ENT: No nasal drainage noted. Mucous membranes pink. Airway patent. NECK: Supple, trachea midline. No JVD. CARDIOVASCULAR: Regular rate and rhythm without murmurs, gallops, or rubs. RESPIRATORY: Breath sounds equal bilaterally. No accessory muscle use. ABDOMEN/GI: Abdomen soft, non-tender, bowel sounds present, no rebound, no guarding. Small gravid uterus. GENITOURINARY: External Genitalia: intact and normal in appearance Cervix: closed, thick, high Presentation: unk Membranes: intact Uterine Contractions: absent FHR: 130s EXTREMITIES: No cyanosis or edema. BACK: Nontender without obvious deformity. No CVA tenderness. NEUROLOGICAL: Awake and alert. Motor and sensory grossly within normal limits. Five out of 5 muscle strength in all muscle groups. Normal speech. Data Data Vital Signs Reviewed: Yes (afebrile, BP wnl) Orders Orders Vital Signs (Adult) .ON ADMISSION (02/22/18 14:35) ^ Labor Status (02/22/18 14:35) Urinalysis - C+S If Indicated (02/22/18 14:35) ^ Non Stress Test (02/22/18 14:35) ^ Hydration (02/22/18 14:35) MDM Narrative Course / MDM 22 year old at 21 weeks with abdominal pain. No CTX. FHR wnl. Afebrile. Has dysuria, will obtain UA and assess for UTI. VS wnl. Intrauterine : Category 1 tracing No CTX PO hydration Routine care US 02/20/2018 unremarkable Of note has been seen a few times for pain this ; in December had wet prep, Gc/chlamydia, and UA which were negative. Counseled on abdominal pain in , given recommendations for short-term bed rest, heating pain, acetaminophen up to 3g daily. Will offer acetaminophen 650mg PO x 1. Will discharge home after UA assessment, treat UTI as indicated. F/U with [facility] Update@4pm: UA normal, will discharge home SDW Dr. Corea Diagnosis Diagnosis: Primary Impression: Abdominal pain affecting Disposition: 01 DISCHARGE HOME Condition: Stable Patient Instructions: Abdominal Pain in (ED) Jacquelin Guzman MD R2 Feb 22, 2018 14:53
[2018-02-22] MEDS ORDERED: ACETAMINOPHEN 325 MG TAB PO ONE (15:00)
[2018-02-22 15:55] LABS: AMORPHOUS SEDIMENT, URINE RARE; BACTERIA, URINE RARE /hpf; BILIRUBIN, URINE NEG (NEG); BLOOD, URINE NEG (NEG); GLUCOSE,URINE NEG (NEG); KETONE, URINE NEG (NEG); MUCUS URINE FEW /lpf (OCC); NITRITE,URINE NEG (NEG); PH, URINE 6.5 (5.0-8.5); SQUAMOUS EPITHELIAL CELL URINE 12 /hpf (0-5); URINE COLOR YELLOW (YELLW/STRAW); URINE LEUKOCYTE ESTERASE SMALL (NEG)
== END 2018-02-22 16:17 | disposition home or self-care (01) ==
LOC: HOBED 14:08
DX: O26.892 Other specified pregnancy related conditions, second trimester (principal); R10.9 Unspecified abdominal pain; O99.512 Diseases of the respiratory system complicating pregnancy, second trimester; J45.909 Unspecified asthma, uncomplicated; O99.352 Diseases of the nervous system complicating pregnancy, second trimester; G89.29 Other chronic pain; M54.9 Dorsalgia, unspecified; Z3A.21 21 weeks gestation of pregnancy
CPT/HCPCS: 81001; 99283

== ENCOUNTER 2018-04-07 20:54 | Emergency (ER) | payer MEDICAID ==
--- NOTE | 2018-04-07 22:04 | PD ---
HPI Chief Complaint Lower abdominal pain pelvic pressure vaginal discharge Date Seen: April 07, 2018 Time Seen: 22:00 Travel History International Travel<30 Days: No Contact w/Intl Traveler<30Days: No Known Affected Area: No History of Present Illness HPI 22-year-old white female at 27 weeks [facility] and presents claiming of lower abdominal pain for about a week increasing pelvic pressure and now vaginal discharge. Denies leakage of fluid or bleeding. No contractions noted NST is reactive Weeks Gestation: 27 Para: 0 : 2 Last Menstrual Period: April 07, 2018 History Obstetric History Obstetric History 1 early loss Social History Alcohol Use: No Tobacco Use: No Substance Abuse: No Allergies-Medications (Allergen,Severity, Reaction): Coded Allergies: No Known Allergies (Verified Allergy, Unknown, 02/22/18) Home Meds Active Scripts Metoclopramide (Metoclopramide) 10 Mg Tab, 10 MG PO QID for Nausea for 5 Days, TAB 0 Refills Prov:Kevin Wayne MD 01/10/18 Ondansetron Odt (Zofran Odt) 4 Mg Tab, 4 MG SL Q8HR Y for Nausea/Vomiting, #12 TAB 0 Refills Prov:Miki Mendoza MD 12/27/17 Cephalexin (Keflex) 500 Mg Capsule, 500 MG PO BID for Infection for 7 Days, #14 CAP 0 Refills Prov:Miki Mendoza MD 12/27/17 Albuterol Neb (Albuterol Neb) 2.5 Mg/3 Ml Neb, 2.5 MG NEB Q4HR NEB Y for SHORTNESS OF BREATH, #60 NEBULE 0 Refills Prov:Amanda Sloan INTERNIST MEDICAL DOCTOR MD 11/19/17 Albuterol 18 GM Inh (Ventolin Hfa 18 GM Inh) 90 Mcg/Act Aer, 2 PUFF INH Q4-6H Y for SOB/WHEEZING, #1 INHALER 0 Refills Prov:Amanda Sloan INTERNIST MEDICAL DOCTOR MD 11/19/17 Review of Systems General / Constitutional: No: Fever, Weight Gain, Chills, Other Eyes: No: Diploplia, Blurred Vision, Visual changes, Pain, Photophobia HENT: No: Headaches, Vertigo, Lightheadedness Cardiovascular: No: Irregular Rhythm, Chest Pain or Discomfort, Palpitations, Tachycardia, Syncope, Varicosities, Edema, Cyanosis Respiratory: No: Cough, Short of Breath, Other Gastrointestinal: Abdominal Pain, No: Nausea, Vomiting, Diarrhea Genitourinary: Discharge, No: Decreased Urinary Output, Oliguria Musculoskeletal: No: Limited ROM, Weakness, Cramping, Edema, Pain Skin: No Rash, No Itching, No Dryness, No Lumps, No Change in Pigmentation, No Change in Nails, No Alopecia, No Lesions Neurologic: No: Weakness, Dizziness, Syncope, Focal Abnormalities, Coordination Problem, Headache, Slurred Speech, Seizures Psychiatric: No: Depression, Suicidal Ideations, Homicidal Ideation Endocrine: No: Heat Intolerance, Cold Intolerance, Polydipsia, Polyuria, Other Physical Exam Narrative GENERAL: Well-nourished, well-developed patient. SKIN: Warm and dry. HEAD: Normocephalic and atraumatic. EYES: No scleral icterus. No injection or drainage. ENT: No nasal drainage noted. Mucous membranes pink. Airway patent. NECK: Supple, trachea midline. No JVD. CARDIOVASCULAR: Regular rate and rhythm without murmurs, gallops, or rubs. RESPIRATORY: Breath sounds equal bilaterally. No accessory muscle use. BREASTS: Bilateral exam showed no masses , no retractions, no nipple discharge. ABDOMEN/GI: Abdomen soft, non-tender, bowel sounds present, no rebound, no guarding Gravid to [27-] weeks size Fundal Height: [27-] GENITOURINARY: External Genitalia: intact and normal in appearance Speculum done in no infective discharge seen only very minimal noninfective white discharge seen Cervix: [-0] Dilatation: [0-] Effacement: [-] Station: [-3] ] Membranes: [intact ] Uterine Contractions: [0-] FHT's: Category: [1-] Baseline: [133-] Reactive: [R-] Variability: [mod-] Decels: [0-] EXTREMITIES: No cyanosis or edema. BACK: Nontender without obvious deformity. No CVA tenderness. NEUROLOGICAL: Awake and alert. Motor and sensory grossly within normal limits. Five out of 5 muscle strength in all muscle groups. Normal speech. Data Data Labs Urine dip on OB ED is negative MDM Interpretation(s) Patient is 22-year-old at 27 weeks [facility] and presents complaining of lower abdominal pain pressure discharge. No bleeding or leakage seen. Her cervix is closed she is not sosa heart rate is reactive. Speculum done no infective discharge noted in the vagina no blood seen. Plan Plan to discharge home with shot for pain Demerol Phenergan IM. She is to use bedrest, heating pad or hot bath, Tylenol 2 every 4 hours p.o. as needed and bedrest as much as possible. Diagnosis Diagnosis: Primary Impression: Abdominal pain during in second trimester Additional Impressions: Vaginal discharge during in third trimester 27 weeks gestation of Disposition: 01 DISCHARGE HOME Condition: Stable Herve Corea II, MD April 07, 2018 22:04
[2018-04-07] MEDS ORDERED: MEPERIDINE HCL 50 MG/ML VIAL IM ONE (22:15)
[2018-04-07] MEDS ORDERED: PROMETHAZINE INJ 25 MG/ML VIAL IM ONE (22:15)
[2018-04-07] MEDS ORDERED: PREN1TAB45 PO (22:38)
[2018-04-07] MEDS ORDERED: DOXY10TA PO (22:38)
== END 2018-04-07 23:20 | disposition home or self-care (01) ==
LOC: HOBED 20:54
DX: O26.892 Other specified pregnancy related conditions, second trimester (principal); Z3A.27 27 weeks gestation of pregnancy
CPT/HCPCS: 99284; J2175; J2550

== ENCOUNTER 2018-05-11 18:28 | Observation (INO) ==
[2018-05-14] MEDS ORDERED: Zolpidem Tartrate 5 MG Tablet PO PRN (00:01)
[2018-05-14] MEDS ORDERED: LORazepam 1 MG Tablet PO SCH (09:00)
== END 2018-05-13 20:09 | disposition home or self-care (01) ==
LOC: H2E 18:28
PROVIDERS: ADMIT Obstetrics & Gynecology Maternal & Fetal Medicine; ATTEND Obstetrics & Gynecology Maternal & Fetal Medicine